=== PATIENT | female | born 1990 | race African-American/Black ===

== ENCOUNTER 2024-06-24 23:03 | Inpatient (IN) | payer MEDICAID ==
[~2024-06-24] VITALS: Ht 157.5 cm; Wt 42.1 kg
[2024-06-24 23:43] LABS: Basophils # (auto) 0 10 ^3/uL (0-0.2); Hemoglobin 10.3 g/dL (12.2-16.2); Lymphocytes # (auto) 1.1 10 ^3/uL (0.4-5.4); Monocytes # (auto) 0.4 10 ^3/uL (0-1.3); Neutrophils # (auto) 2.1 10 ^3/uL (1.6-8.6); White Blood Cell 3.8 10^3/uL (4.4-10.8)
[2024-06-24 23:45] LABS: Eosinophils # (auto) 0.2 10 ^3/uL (0-0.8); Eosinophils % (auto) 4.4 % (0.0-7.0); Hematocrit 31.1 % (36.0-46.0); Lymphocytes % (auto) 28.8 % (10.0-50.0); Mean Corpuscular Hemoglobin 24.9 pg (28.0-32.0); Mean Corpuscular Hgb Conc. 33.2 g/dL (32.0-36.0); Mean Corpuscular Volume 74.9 fL (80.0-100.0); Monocytes % (auto) 9.4 % (0.0-12.0); Neutrophils % (auto) 56.4 % (37.0-80.0); Nucleated Red Blood Cells % 0.2 %; Platelet Count (auto) 343 10^3/uL (140-450); Red Blood Cells 4.15 10^6/uL (4.0-5.20); Red Cell Distribution Width 15.6 % (11.8-14.3)
[2024-06-24 23:59] LABS: Base Excess 0.8 mmol/L (-2.0-3.0)
[2024-06-25] VITALS (9 sets, daily range): BP systolic 128–152; BP diastolic 91–108; PULSE 82–92; RESP 15–17; TEMP 97.6–98.8; O2SAT 97–100
[2024-06-25 00:01] LABS: Albumin 3.6 g/dL (3.2-4.8); Alkaline Phosphatase 133 U/L (46-116); Anion Gap 4 (5-15); Aspartate Aminotransferase < 8 U/L (13-40); BUN/Creatinine Ratio 4.8 (10.0-20.0); Blood Urea Nitrogen 6 mg/dL (9-23); Carbon Dioxide 29 mmol/L (20-30); Chloride 89 mmol/L (98-107); Potassium 3.9 mmol/L (3.5-5.1); Sodium 122 mmol/L (136-145)
[2024-06-25 00:02] LABS: Bilirubin, Total 0.2 mg/dL (0.2-1.0); Total Protein 7.8 g/dL (5.7-8.2)
[2024-06-25 00:20] LABS: Alanine Aminotransferase 9 U/L (7-40)
[2024-06-25 00:21] LABS: Glucose 724 mg/dL (74-106)
[2024-06-25] MEDS ORDERED: DEXTROSE (50%) 50ML SYRG IV PRN ×2 (00:30→10:15)
[2024-06-25] MEDS: INSULIN LANTUS (GLARGINE) 1 /0.01ml (100units/ml) SC ONE (03:00)
[2024-06-25] MEDS: ACCU-CHEK COMFORT CURVE STRIP VI SCH ×2 (03:00→11:33)
[2024-06-25] MEDS: SODIUM CHLORIDE 0.9% 1,000 ML IV ONE ×2 (03:00→03:15)
[2024-06-25] MEDS: INSULIN DRIP 100 UNIT/100ML 100 ML IV SCH (03:03)
[2024-06-25 08:01] LABS: Chloride 102 mmol/L (98-107); Potassium 3.5 mmol/L (3.5-5.1); Sodium 136 mmol/L (136-145)
[2024-06-25 08:02] LABS: Anion Gap 4 (5-15); Calcium 9.2 mg/dL (8.7-10.4); Carbon Dioxide 30 mmol/L (20-30)
[2024-06-25 08:07] LABS: Blood Urea Nitrogen 8 mg/dL (9-23); Glucose 85 mg/dL (74-106)
[2024-06-25] MEDS ORDERED: ONDANSETRON HCL 4 MG/2 ML VIAL IV PRN (10:15)
[2024-06-25] MEDS: SODIUM CHLORIDE 0.9% 1,000 ML IV SCH (10:15)
[2024-06-25] MEDS: InsuLIN REG 1unit/0.01ml Soln (100units/ml) SC SCH (11:40)
[2024-06-25] MEDS ORDERED: ACET250T20 PO (12:42)
[2024-06-25] MEDS ORDERED: ACET-1881 PO (12:45)
[2024-06-25] MEDS ORDERED: INSLISPI SC (12:45)
[2024-06-25] MEDS ORDERED: INSLANTI SC (12:45)
[2024-06-25 16:53] LABS: Urine Bacteria FEW /hpf (None Seen); Urine Blood 1+ /uL (Negative); Urine Clarity Clear (Clear); Urine Color Colorless (Yellow); Urine Protein, UAD 2+ (Negative); Urine Specific Gravity 1.006 (1.001-1.035); Urine Urobilinogen Normal (Negative); Urine WBC 50 /hpf (0 - 5)
[2024-06-25] MEDS ORDERED: DOCUSATE SOD 100 MG CAP PO PRN (21:15)
[2024-06-26] VITALS (7 sets, daily range): BP systolic 102–164; BP diastolic 67–105; PULSE 89–97; RESP 16–18; TEMP 97.6–98.7; O2SAT 98–100
[2024-06-26 06:42] LABS: Basophils # (auto) 0 10 ^3/uL (0-0.2); Hematocrit 28.6 % (36.0-46.0)
[2024-06-26 06:45] LABS: Basophils % (auto) 0.6 % (0.0-2.0); Eosinophils # (auto) 0.2 10 ^3/uL (0-0.8); Eosinophils % (auto) 4.4 % (0.0-7.0); Hemoglobin 9.7 g/dL (12.2-16.2); Lymphocytes # (auto) 1.6 10 ^3/uL (0.4-5.4); Lymphocytes % (auto) 30.6 % (10.0-50.0); Mean Corpuscular Hemoglobin 24.9 pg (28.0-32.0); Mean Corpuscular Hgb Conc. 33.9 g/dL (32.0-36.0); Mean Corpuscular Volume 73.5 fL (80.0-100.0); Monocytes # (auto) 0.4 10 ^3/uL (0-1.3); Monocytes % (auto) 8.3 % (0.0-12.0); Neutrophils # (auto) 2.9 10 ^3/uL (1.6-8.6); Neutrophils % (auto) 56.1 % (37.0-80.0); Nucleated Red Blood Cells % 0.1 %; Platelet Count (auto) 378 10^3/uL (140-450); White Blood Cell 5.2 10^3/uL (4.4-10.8)
[2024-06-26 07:11] LABS: Alkaline Phosphatase 107 U/L (46-116); Anion Gap 8 (5-15); BUN/Creatinine Ratio 10.3 (10.0-20.0); Blood Urea Nitrogen 8 mg/dL (9-23); Calcium 8.8 mg/dL (8.7-10.4); Carbon Dioxide 21 mmol/L (20-30); Chloride 106 mmol/L (98-107); Glucose 237 mg/dL (74-106); Potassium 3.9 mmol/L (3.5-5.1); Sodium 135 mmol/L (136-145)
[2024-06-26 07:12] LABS: Albumin 3.3 g/dL (3.2-4.8); Aspartate Aminotransferase 10 U/L (13-40); Bilirubin, Total 0.2 mg/dL (0.2-1.0); Total Protein 7.1 g/dL (5.7-8.2)
[2024-06-26 07:21] LABS: Alanine Aminotransferase < 9 U/L (7-40)
[2024-06-26] MEDS ORDERED: ACETAMINOPHEN 325 MG TAB PO PRN (11:30)
[2024-06-26] MEDS ORDERED: INSLANTI SC (11:43)
[2024-06-26] MEDS ORDERED: BLOOMIS91 XX (11:43)
[2024-06-26] MEDS: LISINOPRIL 5 MG TAB PO ONE (13:56)
[2024-06-26] MEDS: INSULIN LANTUS (GLARGINE) 1 /0.01ml (100units/ml) SC SCH ×2 (21:27→22:00)
[2024-06-27 00:46] VITALS: BP 132/82; PULSE 95; RESP 18; TEMP 98.1; O2SAT 98
[2024-06-27] MEDS: cefTRIAXone 1GM/50ML D5W 50 ML IV ONE (01:47)
[2024-06-27 05:00] VITALS: BP 118/66; PULSE 83; RESP 18; TEMP 98.2; O2SAT 99
[2024-06-27 08:00] VITALS: PULSE 78; RESP 16; O2SAT 99
[2024-06-27 08:35] LABS: Chloride 103 mmol/L (98-107); Potassium 3.6 mmol/L (3.5-5.1); Sodium 134 mmol/L (136-145)
[2024-06-27 08:36] LABS: Anion Gap 5 (5-15); Calcium 8.7 mg/dL (8.7-10.4); Carbon Dioxide 26 mmol/L (20-30)
[2024-06-27 08:41] LABS: BUN/Creatinine Ratio 17.3 (10.0-20.0); Blood Urea Nitrogen 13 mg/dL (9-23); Glucose 303 mg/dL (74-106)
[2024-06-27 09:00] VITALS: BP 110/71; PULSE 74; RESP 16; TEMP 97.5; O2SAT 95
[2024-06-27] MEDS: cefTRIAXone 1GM/50ML D5W 50 ML IV SCH (11:19)
[2024-06-27] MEDS: LISINOPRIL 5 MG TAB PO SCH (11:20)
[2024-06-27] MEDS ORDERED: INSLISPI SC (11:36)
[2024-06-27] MEDS ORDERED: CEPH500C PO (11:37)
[2024-06-27 13:00] VITALS: BP 135/57; PULSE 93; RESP 16; TEMP 98.1; O2SAT 96
[2024-06-27 16:00] VITALS: BP 110/71; TEMP 36.7
== END 2024-06-27 17:00 | disposition home or self-care (01) | DRG 351 ==
LOC: ER 23:03 → OVERFLOW 06-25 10:08 → CENTRAL 06-25 11:59
PROVIDERS: ADMIT Registered Nurse; ATTEND Internal Medicine Geriatric Medicine
DX: S29.011A Strain of muscle and tendon of front wall of thorax, initial encounter (principal); N17.0 Acute kidney failure with tubular necrosis; E10.65 Type 1 diabetes mellitus with hyperglycemia; N39.0 Urinary tract infection, site not specified; X58.XXXA Exposure to other specified factors, initial encounter; Z79.4 Long term (current) use of insulin; Z91.199 Patient's noncompliance with other medical treatment and regimen due to unspecified reason; Y93.89 Activity, other specified; Y92.89 Other specified places as the place of occurrence of the external cause; Y99.8 Other external cause status
CPT/HCPCS: 36415; 36600; 71045; 80048; 80053; 81001; 81025; 82010; 82805; 82962; 83036; 85025; 96360; 96361; 96372; 99291; G0378; J1815

== ENCOUNTER 2024-10-25 19:09 | Inpatient (IN) | payer MEDICAID, OTHER ==
[~2024-10-25] VITALS: Ht 157.5 cm; Wt 40.5 kg
[~2024-10-25 19:09] MED LIST: ACET-1881 PO; BLOOMIS91 XX; CEPH500C PO; INSLANTI SC; INSLISPI SC
--- NOTE | 2024-10-25 20:33 | ED.PDOC ---
GI ASSESSMENT HPI Comments HPI: Poor Historian. 34-year-old female presents to emergency department for evaluation of constipation and states having no bowel movements since August of last year. Patient denies any associated nausea or vomiting or fever. Denies any use of drugs. Past Medcial History: Diabetes Past Surgical History: , right breast I and D of an abscess REVIEW OF SYSTEMS: CONSTITUTIONAL: Denies acute: fever, diaphoresis, chills, generalized weakness. HEAD: Denies acute: headache, photophobia Eyes: Denies acute: Double vision, vision loss, eye pain, eye discharge. EARS: Denies acute: tinnitus, hearing loss, ear discharge, ear pain, THROAT: Denies acute: sore throat, swelling, difficulty swallowing , pain with swallowing, change in voice. NECK: Denies acute: neck pain, neck swelling, stiff neck. HEART: Denies acute : chest pain, palpitations, LUNGS: Denies acute: SOB, wheezing, cough, hemoptysis ABDOMEN: Denies acute: Nausea, Vomiting, diarrhea, melena , hematemesis, hematochezia SKIN: Denies acute: rash, redness, lesions, itchiness. EXTREMITIES: Denies acute: calf pain, numbness, tingling, weakness, denies pain in extremity. Denies acute: Low back pain. Neuro: Denies acute: focal neurological deficit, motor or sensory focal neurological deficit, tremors, seizure like activity, confusion, dizziness, change in mental status, loss of bowel or bladder function, cauda equina like symptoms. : Denies acute: dysuria, hematuria, flank pain, increase in urinary frequency. PSYCH: Denies acute: hallucination, suicidal ideation, homicidal ideation. FEMALE: Denies acute: abnormal vaginal bleeding, foul odor, unusual discharge. PHYSICAL EXAM: General: no acute distress, awake and alert. Head: normocephalic, atraumatic. Neck: supple, trachea is midline, no swelling. Throat: Normal phonation. Eyes:, no erythema, no purulent discharge, no proptosis, no icterus. Heart: regular rate, regular rhythm, no significant murmur appreciated. Lungs: no apparent respiratory distress, Able to speak in full sentences. No wheezing, no rhonchi, no crackles. No stridors Clear to auscultation bilaterally. Abdomen: non tender to palpation, non distended, soft, no guarding, no rebound, + bowel sounds. Neuro: Awake, Alert, oriented to name, self, situation, follows commands GCS=15. Speech is normal. Skin: no petechia, no purpura, no cyanosis, non-pale, not jaundice. Lower extremities: --no - Pitting edema no deformity, no focal swelling, no calf TTP. Makes eye contact. moves all four extremities. Face: no apparent facial droop. Ambulating in the ED independently. Chief Complaint: Constipation Time Seen by MD: 19:53 Reviewed Notes: Nurses Notes, Allergies Allergies: Coded Allergies: [place] Flavor (Verified Allergy, Severe, 06/25/24) itching in the tongue with fresh mangoes per patient Home Meds Active Scripts Cephalexin Monohydrate (Cephalexin) 500 Mg Cap, 1 CAP PO TID, #15 CAP Prov:ROSETTA BROWN MD 06/27/24 Insulin Lispro (Human) (Humalog) 100 Unit/Ml Inj, 7 UNIT SC TIDWM, #1000 UNITS Prov:ROSETTA BROWN MD 06/27/24 Insulin Glargine (Lantus) 100 Unit/Ml Inj, 15 UNIT SC DAILY, #1000 INJ Prov:ROSETTA BROWN MD 06/26/24 Blood Glucose Monitoring Suppl (Freestyle Lite Blood Gluc) 1 Mis Mis, MIS XX, #1 Prov:ROSETTA BROWN MD 06/26/24 Reported Medications Acetaminophen (Acetaminophen) 325 Mg Tab, 500 MG PO DAILY PRN for PAIN SCALE 1 THRU 6 for 30 Days, MG 0 Refills 06/25/24 Insulin Lispro (Human) (Humalog) 100 Unit/Ml Inj, 4 UNIT SC AC, INJ 06/25/24 Insulin Glargine (Lantus) 100 Unit/Ml Inj, 18 UNIT SC HS, INJ 06/25/24 Information Source: Patient Mode of Arrival: Ambulatory Past Medical History PAST MEDICAL HISTORY: DM Surgical History: Denies all surgeries 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 Was a procedure done?: No X-Ray, Labs, Meds, VS Vital Signs Date Time Temp Pulse Resp B/P (MAP) Pulse Ox O2 Delivery O2 Flow Rate FiO2 10/25/24 19:47 97.7 103 18 102/69 (80) 99 Lab Test 10/25/24 20:20 10/25/24 19:54 Range/Units White Blood Count 7.5 4.4-10.8 10^3/uL Red Blood Count 4.28 4.0-5.20 10^6/uL Hemoglobin 10.3 L 12.2-16.2 g/dL Hematocrit 31.3 L 36.0-46.0 % Mean Corpuscular Volume 73.3 L 80.0-100.0 fL Mean Corpuscular Hemoglobin 24.0 L 28.0-32.0 pg Mean Corpuscular Hemoglobin Concent 32.8 32.0-36.0 g/dL Red Cell Distribution Width 16.1 H 11.8-14.3 % Platelet Count 248 140-450 10^3/uL Mean Platelet Volume 9.0 6.9-10.8 fL Neutrophils (%) (Auto) 69.8 37.0-80.0 % Lymphocytes (%) (Auto) 21.6 10.0-50.0 % Monocytes (%) (Auto) 6.6 0.0-12.0 % Eosinophils (%) (Auto) 1.6 0.0-7.0 % Basophils (%) (Auto) 0.4 0.0-2.0 % Neutrophils # (Auto) 5.2 1.6-8.6 10 ^3/uL Lymphocytes # (Auto) 1.6 0.4-5.4 10 ^3/uL Monocytes # (Auto) 0.5 0-1.3 10 ^3/uL Eosinophils # (Auto) 0.1 0-0.8 10 ^3/uL Basophils # (Auto) 0 0-0.2 10 ^3/uL Nucleated Red Blood Cells 0.0 % Sodium Level 130 L 136-145 mmol/L Potassium Level 3.3 L 3.5-5.1 mmol/L Chloride Level 98 98-107 mmol/L Carbon Dioxide Level 26 20-31 mmol/L Anion Gap 6 5-15 Blood Urea Nitrogen 13 9-23 mg/dL Creatinine 1.09 H 0.550-1.02 mg/dL Glomerular Filtration Rate Calc 69 >90 mL/min BUN/Creatinine Ratio 11.9 10.0-20.0 Serum Glucose 256 H 74-106 mg/dL Lactic Acid Level 1.3 0.4-2.0 mmol/L Calcium Level 9.8 8.7-10.4 mg/dL Total Bilirubin 0.3 0.2-1.0 mg/dL Aspartate Amino Transferase (AST) 9 L 13-40 U/L Alanine Aminotransferase (ALT) < 9 7-40 U/L Alkaline Phosphatase 122 H 46-116 U/L Troponin I High Sensitivity < 3 L </=34 ng/L Total Protein 8.2 5.7-8.2 g/dL Albumin 3.8 3.2-4.8 g/dL Lipase 44 12-53 U/L Urine Color Colorless Yellow Urine Clarity Turbid H Clear Urine pH 6.0 5.0-9.0 Urine Specific [place] 1.003 1.001-1.035 Urine Protein 1+ H Negative Urine Ketones Negative Negative Urine Blood 1+ H Negative /uL Urine Nitrite Negative Negative Urine Bilirubin Negative Negative Urine Urobilinogen Normal Negative mg/dL Urine Leukocyte Esterase 3+ Negative /uL Urine RBC 23 0 - 4 /hpf Urine WBC 216 0 - 5 /hpf Urine Squamous Epithelial Cells Few <5 /hpf Urine Amorphous Crystals Few None Seen /hpf Urine Bacteria Many H None Seen /hpf Urine Glucose 4+ H Normal mg/dL Urine Test Negative Negative Urine Opiates Screen Neg NEGATIVE Urine Fentanyl Screen Neg NEGATIVE Urine Barbiturates Screen Neg NEGATIVE Urine Phencyclidine Screen Neg NEGATIVE Urine Amphetamines Screen Neg NEGATIVE Urine Benzodiazepines Screen Neg NEGATIVE Urine Cocaine Screen Neg NEGATIVE Urine Cannabinoids Screen Neg NEGATIVE [place] [id number] Ph: [phone] DIAGNOSTIC IMAGING Diagnostic Imaging Report : [id number] Signed PATIENT: MADDY CORNEJOT: [id number] UNIT: [id number] : 1990 LOC: ER ROOM / BED: / AGE / SEX: 34 / F ADM STATUS: REG ER SERVICE 99 ORDERING PHYSICIAN: ROSA SALDIVAR DO PROCEDURE(s): ABPL - CT AB PEL WO CON-NO ORAL OR IV REASON: constipation ORDER NUMBER(s): [id number], ACCESSION NUMBER(s): [id number] Exam: CT CT AB PEL WO CON-NO ORAL OR IV History: constipation Comparison Study: None available at time of dictation. TECHNIQUE: Multidetector CT of the abdomen was performed from lung bases to pubic symphysis. Imaging was performed without IV contrast. Axial, coronal and sagittal multiplanar reformats were obtained from the axial data set by the technologist. Radiation Dose Information: CT Dose: CTDI volume is 5.07 mGy. Dose-length product is 249.58 mGy*cm FINDINGS: Evaluation of solid organs is limited due to lack of intravenous contrast use. Findings: Lung Bases: No acute or significant lung base finding. Normal heart size. No pleural or pericardial effusion. Liver: The liver is normal in size. No focal lesions. Gallbladder and Biliary Tree: Unremarkable Spleen: Unremarkable Pancreas: The pancreas is grossly normal in appearance. Adrenal Glands: Unremarkable Kidneys: Bilateral grade 2-3 hydronephrosis with hydroureter to the bladder. Bladder: Markedly distended bladder with urine and gas and thickened wall which is irregular in worrisome for neoplasm. Possibility of infection is raised. Is measured 16 cm long 10 cm in anterior to posterior dimension and 12-13 cm in transverse dimension. Bowel: The stomach is grossly normal in appearance. Small bowel and colon are normal in caliber and distribution. The appendix is not visualized; however, no secondary findings of acute appendicitis identified. Ascites: Absent Lymphadenopathy: No mesenteric, retroperitoneal or periportal lymphadenopathy. Abdominal Wall and Mesentery: Unremarkable. Vasculature: The visualized abdominal aorta is normal in size and caliber. Evaluation of abdominal and pelvic vessels is limited due to lack of intravenous contrast. Pelvic Organs: Uterus appears to be displaced by this fluid containing mass which is assumed to be the bladder Musculoskeletal: No aggressive focal bony lesions, acute fractures or dislocation. Soft tissues: Unremarkable IMPRESSION: 1. Grade 2 hydronephrosis bilaterally with hydroureter to the bladder. The bladder measures 16 x 10 x 13 cm. There is both fluid and gas in the bladder suggesting infection. Another explanation would be that there has been attempted catheterization. The wall of the bladder is irregularly thickened suggesting neoplasm. 2. There is no free air or free fluid. Radiation optimization: All CT scans at this facility use at least one of these dose optimization techniques: automated exposure control mA and/or kV adjustment per patient size (includes targeted exams where dose is matched to clinical indication) or iterative reconstruction. ATED BY: TRANG EWING Jr., DO DICTATED DATE/TIME: 10/25/242110 SIGNED BY: TRANG EWING Jr., SIGNED DATE/TIME: 10/25/242110 CC: Patient Education/Counseling: Diagnosis, Treatment Family Education/Counseling: No Family Present Departure 1 Departure Time of Disposition: 21:52 Impression: Primary Impression: Constipation Additional Impressions: UTI (urinary tract infection) Hydronephrosis Abnormal finding on CT scan Disposition: ADMITTED INPATIENT Admit to: Tele Condition: Guarded Discharged With: Self I personally scribed for ROSA SALDIVAR DO ([email or web address]) on 10/25/24 at 20:33. Electronically submitted by Rene Caldwell ([email or web address]). I personally scribed for ROSA SALDIVAR DO ([email or web address]) on 10/25/24 at 22:26. Electronically submitted by Rene Caldwell ([email or web address]). ROSA SALDIVAR DO Oct 25, 2024 20:33
[2024-10-25 20:41] LABS: Basophils # (auto) 0 10 ^3/uL (0-0.2); Eosinophils # (auto) 0.1 10 ^3/uL (0-0.8); Hematocrit 31.3 % (36.0-46.0); Monocytes # (auto) 0.5 10 ^3/uL (0-1.3); Red Blood Cells 4.28 10^6/uL (4.0-5.20); White Blood Cell 7.5 10^3/uL (4.4-10.8)
[2024-10-25 20:42] LABS: Basophils % (auto) 0.4 % (0.0-2.0); Eosinophils % (auto) 1.6 % (0.0-7.0); Hemoglobin 10.3 g/dL (12.2-16.2); Lymphocytes # (auto) 1.6 10 ^3/uL (0.4-5.4); Lymphocytes % (auto) 21.6 % (10.0-50.0); Mean Corpuscular Hgb Conc. 32.8 g/dL (32.0-36.0); Mean Corpuscular Volume 73.3 fL (80.0-100.0); Monocytes % (auto) 6.6 % (0.0-12.0); Neutrophils # (auto) 5.2 10 ^3/uL (1.6-8.6); Neutrophils % (auto) 69.8 % (37.0-80.0); Platelet Count (auto) 248 10^3/uL (140-450); Red Cell Distribution Width 16.1 % (11.8-14.3)
[2024-10-25 20:57] LABS: Amphetamine Screen, Urine Neg (NEGATIVE); Barbiturate Scree,Urine Neg (NEGATIVE); Benzodiazephine Screen, Urine Neg (NEGATIVE); Cannabinoid Screen, Urine Neg (NEGATIVE); Cocaine Screen, Urine Neg (NEGATIVE); Opiate Scree,Urine Neg (NEGATIVE); Phencyclidine Screen, Urine Neg (NEGATIVE)
[2024-10-25 20:58] LABS: Albumin 3.8 g/dL (3.2-4.8); Anion Gap 6 (5-15); BUN/Creatinine Ratio 11.9 (10.0-20.0); Bilirubin, Total 0.3 mg/dL (0.2-1.0); Blood Urea Nitrogen 13 mg/dL (9-23); Calcium 9.8 mg/dL (8.7-10.4); Carbon Dioxide 26 mmol/L (20-31)
[2024-10-25 21:00] LABS: Alanine Aminotransferase < 9 U/L (7-40); Alkaline Phosphatase 122 U/L (46-116); Aspartate Aminotransferase 9 U/L (13-40); Chloride 98 mmol/L (98-107); Glucose 256 mg/dL (74-106); Potassium 3.3 mmol/L (3.5-5.1); Sodium 130 mmol/L (136-145); Total Protein 8.2 g/dL (5.7-8.2)
--- NOTE | 2024-10-25 21:14 | DVH ---
Exam: CT CT AB PEL WO CON-NO ORAL OR IV History: constipation Comparison Study: None available at time of dictation. TECHNIQUE: Multidetector CT of the abdomen was performed from lung bases to pubic symphysis. Imaging was performed without IV contrast. Axial, coronal and sagittal multiplanar reformats were obtained fr om the axial data set by the technologist. Radiation Dose Information: CT Dose: CTDI volume is 5.07 mGy. Dose-length product is 249.58 mGy*cm FINDINGS: Evaluation of solid organs is limited due to lack of intravenous contrast use. Findings: Lung Bases: No acute or significant lung base finding. Normal heart size. No pleural or pericardial effusion. Liver: The liver is normal in size. No focal lesions. Gallbladder and Biliary Tree: Unremarkable Spleen: Unremarkable Pancreas: The pancreas is grossly normal in appearance. Adrenal Glands: Unremarkable Kidneys: Bilateral grade 2-3 hydronephrosis with hydroureter to the bladder. Bladder: Markedly distended bladder with urine and gas and thickened wall which is irregular in worri some for neoplasm. Possibility of infection is raised. Is measured 16 cm long 10 cm in anterior to po sterior dimension and 12-13 cm in transverse dimension. Bowel: The stomach is grossly normal in appearance. Small bowel and colon are normal in caliber and d istribution. The appendix is not visualized; however, no secondary findings of acute appendicitis id entified. Ascites: Absent Lymphadenopathy: No mesenteric, retroperitoneal or periportal lymphadenopathy. Abdominal Wall and Mesentery: Unremarkable. Vasculature: The visualized abdominal aorta is normal in size and caliber. Evaluation of abdominal a nd pelvic vessels is limited due to lack of intravenous contrast. Pelvic Organs: Uterus appears to be displaced by this fluid containing mass which is assumed to be th e bladder Musculoskeletal: No aggressive focal bony lesions, acute fractures or dislocation. Soft tissues: Unremarkable IMPRESSION: 1. Grade 2 hydronephrosis bilaterally with hydroureter to the bladder. The bladder measures 16 x 10 x 13 cm. There is both fluid and gas in the bladder suggesting infection. Another explanation would be that there has been attempted catheterization. The wall of the bladder is irregularly thickened sugg esting neoplasm. 2. There is no free air or free fluid. Radiation optimization: All CT scans at this facility use at least one of these dose optimization te chniques: automated exposure control mA and/or kV adjustment per patient size (includes targeted exa ms where dose is matched to clinical indication) or iterative reconstruction.
[2024-10-25 21:18] LABS: Urine Amorphous Crystal FEW /hpf (None Seen); Urine Bacteria MANY /hpf (None Seen); Urine Blood 1+ /uL (Negative); Urine Clarity Turbid (Clear); Urine Color Colorless (Yellow); Urine Protein, UAD 1+ (Negative); Urine Specific Gravity 1.003 (1.001-1.035); Urine Squamous Epithelial Cell FEW /hpf (<5); Urine Urobilinogen Normal (Negative); Urine WBC 216 /hpf (0 - 5)
[2024-10-25 21:45] LABS: Lipase 44 U/L (12-53)
[2024-10-25] MEDS ORDERED: cefTRIAXone 1GM/50ML D5W 50 ML IV ONE (22:00)
--- NOTE | 2024-10-25 23:25 | DVHHPRES ---
History of Present Illness Resident Creating Document: SINAN DELCID RESIDENT History of Present Illness This is a 34 years old female with past medical history of type 1 diabetes mellitus, sickle cell trait presented to the ED with a chief complaint of not having any bowel movement since August 2024. The patient states that she did not have any bowel movement since August and also complains of right- sided abdominal pain including right subcostal, hypochondriac and right lumbar region but did mention passing of flatus. She normally has a bowel movement every other week since childhood. She also mentioned low-grade fever, night sweats, loss of 10 lb in 4 month and night time incontinence need to use diaper for last 1 month. The patient also complained of amenorrhea since May 2024 and not using any control and her last child was born on 2018 and she had 3 section. The patient denies nausea, vomiting, hemoptysis, hematemesis, chest pain, shortness of breath, dizziness. Past Medical History Type 1 DM and sickle cell traits Past Surgical History 3 Family History Type 1 Diabetes mellitus, lupus and CHF runs in the family Past Social History Lives with family Nonsmoker, nonalcoholic and never tried any drugs. Review of Systems Constitutional: Yes: Sweats, Weakness; No: Fever, Chills, Malaise, Other Eyes: No: Pain, Vision change, Conjunctivae inflammation, Eyelid inflammation, Other, Redness ENT: No: Ear pain, Ear discharge, Nose pain, Nose discharge, Nose congestion, Mouth pain, Mouth swelling, Throat pain, Throat swelling, Other Respiratory: No: Cough, Dry, Shortness of breath, SOB with excertion, Wheezing, Hemoptysis, Pleuritic Pain, Sputum, Wheezing, Other Cardiovascular: No: Chest Pain, Palpitations, Orthopnea, Paroxysmal Noc. Dyspnea, Edema, Lt Headedness, Other Gastrointestinal: Abdominal Pain, Constipation, Hematochezia; No: Nausea, Vomiting, Diarrhea, Melena, Other Genitourinary: Dysuria, Frequency, Incontinence; No Hematuria, No Retention, No Other Musculoskeletal: No: other, neck pain, shoulder pain, arm pain, back pain, hand pain, leg pain, foot pain Skin: No: Rash, Lesions, Jaundice, Bruising, Other Neurological: No: Weakness, Numbness, Incoordination, Change in speech, Confusion, Seizures, Other Allergies: Coded Allergies: [place] Flavor (Verified Allergy, Severe, 06/25/24) itching in the tongue with fresh mangoes per patient Exam Vital Signs Vital Signs Date Time Temp Pulse Resp B/P (MAP) Pulse Ox O2 Delivery O2 Flow Rate FiO2 10/25/24 19:47 97.7 103 18 102/69 (80) 99 Exam Physical examination: General Appearance: Alert, Oriented X3, Cooperative, No acute distress HEENT: Atraumatic, PERRLA, EOMI, Mucous membrane moist/pink Respiratory: Clear to auscultation, Normal air movement Cardiovascular: Regular rate, Normal S1, Normal S2, No murmurs, no chest wall tenderness Abdominal: Abdomen is mildly distended, soft, sluggish bowel sounds, mild tenderness in the rt hypochondria region, No hepatospenomegaly, No masses Extremities: No clubbing, No cyanosis, No edema, Normal pulses, No tenderness/swelling Skin: No rashes, No breakdown, No significant lesion Neuro: Normal gait, Normal speech, Strength at 5/5 X4 ext, Normal tone, Sensation intact, grossly intact cranial nerves Psych/Mental Status: Mental status NL, Mood NL Labs/Xrays Labs Test 10/25/24 20:20 10/25/24 19:54 Range/Units White Blood Count 7.5 4.4-10.8 10^3/uL Red Blood Count 4.28 4.0-5.20 10^6/uL Hemoglobin 10.3 L 12.2-16.2 g/dL Hematocrit 31.3 L 36.0-46.0 % Mean Corpuscular Volume 73.3 L 80.0-100.0 fL Mean Corpuscular Hemoglobin 24.0 L 28.0-32.0 pg Mean Corpuscular Hemoglobin Concent 32.8 32.0-36.0 g/dL Red Cell Distribution Width 16.1 H 11.8-14.3 % Platelet Count 248 140-450 10^3/uL Mean Platelet Volume 9.0 6.9-10.8 fL Neutrophils (%) (Auto) 69.8 37.0-80.0 % Lymphocytes (%) (Auto) 21.6 10.0-50.0 % Monocytes (%) (Auto) 6.6 0.0-12.0 % Eosinophils (%) (Auto) 1.6 0.0-7.0 % Basophils (%) (Auto) 0.4 0.0-2.0 % Neutrophils # (Auto) 5.2 1.6-8.6 10 ^3/uL Lymphocytes # (Auto) 1.6 0.4-5.4 10 ^3/uL Monocytes # (Auto) 0.5 0-1.3 10 ^3/uL Eosinophils # (Auto) 0.1 0-0.8 10 ^3/uL Basophils # (Auto) 0 0-0.2 10 ^3/uL Nucleated Red Blood Cells 0.0 % Sodium Level 130 L 136-145 mmol/L Potassium Level 3.3 L 3.5-5.1 mmol/L Chloride Level 98 98-107 mmol/L Carbon Dioxide Level 26 20-31 mmol/L Anion Gap 6 5-15 Blood Urea Nitrogen 13 9-23 mg/dL Creatinine 1.09 H 0.550-1.02 mg/dL Glomerular Filtration Rate Calc 69 >90 mL/min BUN/Creatinine Ratio 11.9 10.0-20.0 Serum Glucose 256 H 74-106 mg/dL Lactic Acid Level 1.3 0.4-2.0 mmol/L Calcium Level 9.8 8.7-10.4 mg/dL Total Bilirubin 0.3 0.2-1.0 mg/dL Aspartate Amino Transferase (AST) 9 L 13-40 U/L Alanine Aminotransferase (ALT) < 9 7-40 U/L Alkaline Phosphatase 122 H 46-116 U/L Troponin I High Sensitivity < 3 L </=34 ng/L Total Protein 8.2 5.7-8.2 g/dL Albumin 3.8 3.2-4.8 g/dL Lipase 44 12-53 U/L Urine Color Colorless Yellow Urine Clarity Turbid H Clear Urine pH 6.0 5.0-9.0 Urine Specific [place] 1.003 1.001-1.035 Urine Protein 1+ H Negative Urine Ketones Negative Negative Urine Blood 1+ H Negative /uL Urine Nitrite Negative Negative Urine Bilirubin Negative Negative Urine Urobilinogen Normal Negative mg/dL Urine Leukocyte Esterase 3+ Negative /uL Urine RBC 23 0 - 4 /hpf Urine WBC 216 0 - 5 /hpf Urine Squamous Epithelial Cells Few <5 /hpf Urine Amorphous Crystals Few None Seen /hpf Urine Bacteria Many H None Seen /hpf Urine Glucose 4+ H Normal mg/dL Urine Test Negative Negative Urine Opiates Screen Neg NEGATIVE Urine Fentanyl Screen Neg NEGATIVE Urine Barbiturates Screen Neg NEGATIVE Urine Phencyclidine Screen Neg NEGATIVE Urine Amphetamines Screen Neg NEGATIVE Urine Benzodiazepines Screen Neg NEGATIVE Urine Cocaine Screen Neg NEGATIVE Urine Cannabinoids Screen Neg NEGATIVE Assessment/Plan Assessment/Plan Assessment and plan: # Acute complicated cystitis - U/A is consistent with UTI - Ordered urine bacterial culture - IV ceftriaxone 1 gm daily. # Grade 2 bilateral hydronephrosis and hydroureter likely secondary to possible bladder neoplasm # Constipation likely due to pressure effect of bladder on the rectum - CT abdomen pelvis revealed grade 2 hydronephrosis bilaterally with hydroureter to the bladder and the bladder measures 16 x 10 x 13 cm irregularly thickened suggesting neoplasm. There is both fluid and gas in the bladder suggesting infection. - Consulted Urology - Lactulose 15 mL p.o. once and Colace 100 mg p.o. b.i.d. 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 # Type 1 diabetes mellitus, HbA1C 13.4% - Lantus 15 units at q.a.m. and mild sliding scale of insulin # Chronic microcytic anaemia - Ordered iron panel, ferritin and stool occult blood. # GERD - Protonix 40 mg po daily. Goal of care discussed with the patient for more than 17 minutes full code Plan discussed with Dr. Syed Plan discussed with: Patient, Other My Orders Orders - SINAN DELCID RESIDENT Procedure Category Date Status Time Admit ADMIT 10/25/24 Transmitted 23:20 Chest Xray 1 View XY 10/25/24 Verified 23:21 Urine Bacterial MIGUEL 10/25/24 Verified Culture 23:21 NS PHA 10/25/24 Verified 23:30 Ceftriaxone Ivpb PHA 10/26/24 Verified Rocephin 10:00 Date of Service: Oct 25, 2024 Billing Provider: GALDINO SYED MD Common Visit Codes: [id number] INP/OBS CARE (HIGH) SINAN DELCID RESIDENT Oct 25, 2024 23:25 GALDINO SYED MD Oct 26, 2024 17:47
[2024-10-26] VITALS (7 sets, daily range): BP systolic 126–163; BP diastolic 83–108; PULSE 83–102; RESP 12–18; TEMP 97.4–98.7; O2SAT 96–100
[2024-10-26 00:10] LABS: Follicle Stimulating Hormone 3.6 IU/L (SEE BELOW); Prolactin 4.31 ng/mL (2.8-29.2)
--- NOTE | 2024-10-26 00:42 | DVH ---
CHEST RADIOGRAPH Indication: chest pain Technique: Single frontal view of the chest was obtained COMPARISON: XY CHEST PORTABLE on DOS: 06/25/24 FINDINGS: Lines and Tubes: None Lungs: Clear Pleura: No effusion. No pneumothorax. Cardiomediastinal contours: Unremarkable Bones: Unremarkable IMPRESSION: 1. No acute disease.
[2024-10-26] MEDS ORDERED: DEXTROSE (50%) 50ML SYRG IV PRN (01:45)
--- NOTE | 2024-10-26 03:11 | DVH ---
Examination: PELUS CLINICAL INDICATION: Secondary amenorrhoea COMPARISON: None. TECHNIQUE: Transabdominal ultrasound was performed. FINDINGS: The uterus is anteverted and measures 6.9 cm in length, 4.3 cm anteroposterior and 3 cm transverse di mensions. It shows homogenous echotexture. Uterus appears displaced by bladder. The endometrium is not visualized. Cervix is within normal limits. Both ovaries are not seen. There is no evidence of adnexal mass. No free fluid is seen. Bladder appears distended, 532 mL with debris. IMPRESSION: 1. No significant abnormality is noted in this study. 2. Uterus appears unremarkable. 3. No free fluid. Electronically Signed 10/26/2024 03:10 Ramesh Bustos
[2024-10-26 06:18] LABS: % Iron Saturation 6.9 % (15-50)
[2024-10-26] MEDS: SODIUM CHLORIDE 0.9% 1,000 ML IV ONE (06:25)
[2024-10-26] MEDS: LACTULOSE 20Gm/30ML SOLN PO ONE (06:33)
[2024-10-26] MEDS: POTASSIUM EFFERVESENT TAB 25 MEQ PO ONE (06:34)
[2024-10-26] MEDS: PANTOPRAZOLE 40 MG TAB PO SCH (06:35)
[2024-10-26] MEDS: ACCU-CHEK COMFORT CURVE STRIP VI SCH (06:45)
[2024-10-26] MEDS: InsuLIN REG 1unit/0.01ml Soln (100units/ml) SC SCH (06:50)
[2024-10-26] MEDS: INSULIN LANTUS (GLARGINE) 1 /0.01ml (100units/ml) SC SCH (07:02)
[2024-10-26 08:04] LABS: Basophils # (auto) 0 10 ^3/uL (0-0.2); Eosinophils # (auto) 0.2 10 ^3/uL (0-0.8); Monocytes # (auto) 0.4 10 ^3/uL (0-1.3); Neutrophils # (auto) 3.3 10 ^3/uL (1.6-8.6); Red Cell Distribution Width 16.5 % (11.8-14.3)
[2024-10-26 08:06] LABS: Anion Gap 8 (5-15); Basophils % (auto) 0.5 % (0.0-2.0); Carbon Dioxide 28 mmol/L (20-31); Hematocrit 30.1 % (36.0-46.0); Lymphocytes # (auto) 1.3 10 ^3/uL (0.4-5.4); Lymphocytes % (auto) 24.6 % (10.0-50.0); Mean Corpuscular Hgb Conc. 33.2 g/dL (32.0-36.0); Mean Corpuscular Volume 72.4 fL (80.0-100.0); Monocytes % (auto) 7.5 % (0.0-12.0); Neutrophils % (auto) 64.4 % (37.0-80.0); Platelet Count (auto) 209 10^3/uL (140-450); Red Blood Cells 4.15 10^6/uL (4.0-5.20); White Blood Cell 5.2 10^3/uL (4.4-10.8)
[2024-10-26 08:08] LABS: Calcium 9.7 mg/dL (8.7-10.4)
[2024-10-26 08:11] LABS: Chloride 98 mmol/L (98-107); Potassium 3.3 mmol/L (3.5-5.1); Sodium 134 mmol/L (136-145)
[2024-10-26 08:13] LABS: BUN/Creatinine Ratio 13.3 (10.0-20.0); Blood Urea Nitrogen 15 mg/dL (9-23)
[2024-10-26 08:24] LABS: Glucose 368 mg/dL (74-106)
--- NOTE | 2024-10-26 09:41 | DVHINCON2 ---
Date of service: Oct 26, 2024 Referring Physician Hospitalist Reason for Consultation Bilateral hydronephrosis and distended bladder History of Present Illness 34 years old female with past medical history of type 1 diabetes mellitus, sickle cell trait presented to the ED with a chief complaint of not having any bowel movement since August 2024. The patient states that she did not have any bowel movement since August and also complains of right-sided abdominal pain including right subcostal, hypochondriac and right lumbar region but did mention passing of flatus. She normally has a bowel movement every other week since childhood. She also mentioned low-grade fever, night sweats, loss of 10 lb in 4 month and night time incontinence need to use diaper for last 1 month. The patient also complained of amenorrhea since May 2024 and not using any control and her last child was born on 2018 and she had 3 sect ion. The patient denies nausea, vomiting, hemoptysis, hematemesis, chest pain, shortness of breath, dizziness. Past Medical History Type 1 DM and sickle cell traits Past Surgical History 3 Family History: FH: type 1 diabetes G8 MOTHER FHx: kidney disease G8 MOTHER Patient's mother is G8 MOTHER Allergies: Coded Allergies: [place] Flavor (Verified Allergy, Severe, 06/25/24) itching in the tongue with fresh mangoes per patient Home Meds Active Scripts Cephalexin Monohydrate (Cephalexin) 500 Mg Cap, 1 CAP PO TID, #15 CAP Prov:ROSETTA BROWN MD 06/27/24 Insulin Lispro (Human) (Humalog) 100 Unit/Ml Inj, 7 UNIT SC TIDWM, #1000 UNITS Prov:ROSETTA BROWN MD 06/27/24 Insulin Glargine (Lantus) 100 Unit/Ml Inj, 15 UNIT SC DAILY, #1000 INJ Prov:ROSETTA BROWN MD 06/26/24 Blood Glucose Monitoring Suppl (Freestyle Lite Blood Gluc) 1 Mis Mis, MIS XX, #1 Prov:ROSETTA BROWN MD 06/26/24 Reported Medications Acetaminophen (Acetaminophen) 325 Mg Tab, 500 MG PO DAILY PRN for PAIN SCALE 1 THRU 6 for 30 Days, MG 0 Refills 06/25/24 Insulin Lispro (Human) (Humalog) 100 Unit/Ml Inj, 4 UNIT SC AC, INJ 06/25/24 Insulin Glargine (Lantus) 100 Unit/Ml Inj, 18 UNIT SC HS, INJ 06/25/24 Current Medications Current Medications Medications (Trade) Dose Ordered Sig/Tiara Route PRN Reason Start Time Stop Time Status Last Admin Sodium Chloride 1,000 ml @ 75 mls/hr [id number] IV 10/25/24 23:30 Ceftriaxone Sodium 50 ml @ 100 mls/hr DAILY IV 10/26/24 10:00 Docusate Sodium (Colace Capsule) 100 mg BID PO 10/26/24 10:00 Insulin Glargine (Lantus) 15 units QAM SC 10/26/24 07:00 10/26/24 07:02 Diagnostic Test (Pha) (Accu-Chek Comfort Curve T) 1 strip ACHS 10/26/24 07:00 10/26/24 06:45 Insulin Human Regular (InsuLIN R) ACHS SC 10/26/24 07:00 10/26/24 06:50 Dextrose 50 ml UD PRN IV Blood Sugar LESS THAN 60 10/26/24 01:45 Pantoprazole Sodium (Protonix Tablet) 40 mg DAILY@0600 PO 10/26/24 06:00 10/26/24 06:35 Review of Systems Constitutional: Yes: Sweats, Weakness; No: Fever, Chills, Malaise, Other Eyes: No: Pain, Vision change, Conjunctivae inflammation, Eyelid inflammation, Other, Redness ENT: No: Ear pain, Ear discharge, Nose pain, Nose discharge, Nose congestion, Mouth pain, Mouth swelling, Throat pain, Throat swelling, Other Respiratory: No: Cough, Dry, Shortness of breath, SOB with excertion, Wheezing, Hemoptysis, Pleuritic Pain, Sputum, Wheezing, Other Cardiovascular: No: Chest Pain, Palpitations, Orthopnea, Paroxysmal Noc. Dyspnea, Edema, Lt Headedness, Other Gastrointestinal: Abdominal Pain, Constipation, Hematochezia; No: Nausea, Vomiting, Diarrhea, Melena, Other Genitourinary: Dysuria, Frequency, Incontinence; No Hematuria, No Retention, No Other Musculoskeletal: No: other, neck pain, shoulder pain, arm pain, back pain, hand pain, leg pain, foot pain Skin: No: Rash, Lesions, Jaundice, Bruising, Other Neurological: No: Weakness, Numbness, Incoordination, Change in speech, Confusion, Seizures, Other Allergies: Coded Allergies: [place] Flavor (Verified Allergy, Severe, 06/25/24) itching in the tongue with fresh mangoes per patient Vital Signs Vital Signs Date Time Temp Pulse Resp B/P (MAP) Pulse Ox O2 Delivery O2 Flow Rate FiO2 10/26/24 05:47 98.1 94 16 133/89 (104) 100 98.1 Physical Exam Vital Signs Date Time Temp Pulse Resp B/P (MAP) Pulse Ox O2 Delivery O2 Flow Rate FiO2 10/25/24 19:47 97.7 103 18 102/69 (80) 99 Exam Physical examination: General Appearance: Alert, Oriented X3, Cooperative, No acute distress HEENT: Atraumatic, PERRLA, EOMI, Mucous membrane moist/pink Respiratory: Clear to auscultation, Normal air movement Cardiovascular: Regular rate, Normal S1, Normal S2, No murmurs, no chest wall tenderness Abdominal: Abdomen is mildly distended, soft, sluggish bowel sounds, mild tenderness in the rt hypochondria region, No hepatospenomegaly, No masses Extremities: No clubbing, No cyanosis, No edema, Normal pulses, No tenderness/swelling Skin: No rashes, No breakdown, No significant lesion Neuro: Normal gait, Normal speech, Strength at 5/5 X4 ext, Normal tone, Sensation intact, grossly intact cranial nerves Psych/Mental Status: Mental status NL, Mood NL Labs/Diagnostic Data Labs Test 10/26/24 06:42 10/26/24 05:38 10/25/24 20:20 10/25/24 19:54 Range/Units POC Glucose 382 H 70-106 mg/dl White Blood Count 5.2 # 4.4-10.8 10^3/uL Red Blood Count 4.15 4.0-5.20 10^6/uL Hemoglobin 10.0 L 12.2-16.2 g/dL Hematocrit 30.1 L 36.0-46.0 % Mean Corpuscular Volume 72.4 L 80.0-100.0 fL Mean Corpuscular Hemoglobin 24.0 L 28.0-32.0 pg Mean Corpuscular Hemoglobin Concent 33.2 32.0-36.0 g/dL Red Cell Distribution Width 16.5 H 11.8-14.3 % Platelet Count 209 140-450 10^3/uL Mean Platelet Volume 10.1 6.9-10.8 fL Neutrophils (%) (Auto) 64.4 37.0-80.0 % Lymphocytes (%) (Auto) 24.6 10.0-50.0 % Monocytes (%) (Auto) 7.5 0.0-12.0 % Eosinophils (%) (Auto) 3.0 0.0-7.0 % Basophils (%) (Auto) 0.5 0.0-2.0 % Neutrophils # (Auto) 3.3 1.6-8.6 10 ^3/uL Lymphocytes # (Auto) 1.3 0.4-5.4 10 ^3/uL Monocytes # (Auto) 0.4 0-1.3 10 ^3/uL Eosinophils # (Auto) 0.2 0-0.8 10 ^3/uL Basophils # (Auto) 0 0-0.2 10 ^3/uL Nucleated Red Blood Cells 0.0 % Sodium Level 134 L 136-145 mmol/L Potassium Level 3.3 L 3.5-5.1 mmol/L Chloride Level 98 98-107 mmol/L Carbon Dioxide Level 28 20-31 mmol/L Anion Gap 8 5-15 Blood Urea Nitrogen 15 9-23 mg/dL Creatinine 1.13 H 0.550-1.02 mg/dL Glomerular Filtration Rate Calc 66 >90 mL/min BUN/Creatinine Ratio 13.3 10.0-20.0 Serum Glucose 368 H 74-106 mg/dL Calcium Level 9.7 8.7-10.4 mg/dL Iron Level 16 L 50-170 ug/dL Total Iron Binding Capacity 233 L 250-425 ug/dL Percent Iron Saturation 6.9 L 15-50 % Ferritin 51.7 10-291 ng/mL Hemoglobin A1c 13.4 H <5.7 % A1C Lactic Acid Level 1.3 0.4-2.0 mmol/L Total Bilirubin 0.3 0.2-1.0 mg/dL Aspartate Amino Transferase (AST) 9 L 13-40 U/L Alanine Aminotransferase (ALT) < 9 7-40 U/L Alkaline Phosphatase 122 H 46-116 U/L Troponin I High Sensitivity < 3 L </=34 ng/L Total Protein 8.2 5.7-8.2 g/dL Albumin 3.8 3.2-4.8 g/dL Lipase 44 12-53 U/L Thyroid Stimulating Hormone (TSH) 0.92 0.55-4.78 uIU/mL Free Thyroxine (T4) Calculated 1.22 0.89-1.76 ng/dL Follicle Stimulating Hormone 3.60 SEE BELOW IU/L Luteinizing Hormone 0.9 IU/L Prolactin 4.31 2.8-29.2 ng/mL Urine Color Colorless Yellow Urine Clarity Turbid H Clear Urine pH 6.0 5.0-9.0 Urine Specific [place] 1.003 1.001-1.035 Urine Protein 1+ H Negative Urine Ketones Negative Negative Urine Blood 1+ H Negative /uL Urine Nitrite Negative Negative Urine Bilirubin Negative Negative Urine Urobilinogen Normal Negative mg/dL Urine Leukocyte Esterase 3+ Negative /uL Urine RBC 23 0 - 4 /hpf Urine WBC 216 0 - 5 /hpf Urine Squamous Epithelial Cells Few <5 /hpf Urine Amorphous Crystals Few None Seen /hpf Urine Bacteria Many H None Seen /hpf Urine Glucose 4+ H Normal mg/dL Urine Test Negative Negative Urine Opiates Screen Neg NEGATIVE Urine Fentanyl Screen Neg NEGATIVE Urine Barbiturates Screen Neg NEGATIVE Urine Phencyclidine Screen Neg NEGATIVE Urine Amphetamines Screen Neg NEGATIVE Urine Benzodiazepines Screen Neg NEGATIVE Urine Cocaine Screen Neg NEGATIVE Urine Cannabinoids Screen Neg NEGATIVE Assessment Bilateral hydronephrosis Bladder distention Plan/Recommendation Cystoscopy with bilateral retrograde pyelogram, possible bilateral stents placement Johnson to gravity Plan discussed with: Patient, Other ORLANDO TRAN MD Oct 26, 2024 09:41
[2024-10-26] MEDS: SODIUM CHLORIDE 0.9% 1,000 ML IV SCH (10:44)
[2024-10-26] MEDS: cefTRIAXone 1GM/50ML D5W 50 ML IV SCH (10:45)
[2024-10-26] MEDS: DEXTROSE 50% SYRINGE 50 ML IV ONE (11:16)
[2024-10-26] MEDS: IOHEXOL 300 MG/ML 100ML BOTTLE IJ ONE ×2 (11:27→13:36)
--- NOTE | 2024-10-26 12:03 | DVHPNRES ---
Progress Note Date Seen: Oct 26, 2024 Resident Creating Document: WILBER WALKER MAC Has the PT tested + for MRSA If YES, has PT been informed?: No Medical Necessity Reason Pt with a Central, PICC or Fol: No Subjective Review of Systems A 34-year-old female with a history of type 1 diabetes mellitus and sickle cell trait presented to the ED with a chief complaint of not having a bowel movement since August 2024. She also reported right-sided abdominal pain, including the right subcostal, hypochondriac, and right lumbar regions, but mentioned passing flatus. She normally has a bowel movement every other week since childhood. Additionally, she reported low-grade fever, night sweats, a 10 lb weight loss over four months, and nighttime incontinence requiring diaper use for the past month. She also complained of amenorrhea since May 2024 and is not using any control, with her last child born in 2018 via . She denies nausea, vomiting, hemoptysis, hematemesis, chest pain, shortness of breath, and dizziness. PMHx: Diabetes type 1, sickle cell trait PSHx: 3 Family history: Diabetes type 1, lupus, CHF, sickle cell traits Social history: Lives with the family Home medication: Allergic history: Objective vital signs Vital Sign Date Time Temp Pulse Resp B/P (MAP) Pulse Ox O2 Delivery O2 Flow Rate FiO2 10/26/24 09:00 98.7 102 17 126/83 (97) 99 98.7 medications Current Medications Medications Dose Ordered Sig/Tiara Route Start Time Stop Time Status Last Admin Dose Admin Sodium Chloride 1,000 ml @ 75 mls/hr [id number] IV 10/25/24 23:30 10/26/24 10:44 75 MLS/HR Ceftriaxone Sodium 50 ml @ 100 mls/hr DAILY IV 10/26/24 10:00 10/26/24 10:45 100 MLS/HR Docusate Sodium 100 mg BID PO 10/26/24 10:00 Insulin Glargine 15 units QAM SC 10/26/24 07:00 10/26/24 07:02 15 UNITS Diagnostic Test (Pha) 1 strip ACHS 10/26/24 07:00 10/26/24 06:45 1 STRIP Insulin Human Regular ACHS SC 10/26/24 07:00 10/26/24 06:50 10 UNITS Dextrose 50 ml UD PRN IV 10/26/24 01:45 Pantoprazole Sodium 40 mg DAILY@0600 PO 10/26/24 06:00 10/26/24 06:35 40 MG Enteral Nutritional Formula 240 ml TIDWM PO 10/26/24 12:00 UNV laboratory and microbiology Laboratory Tests 10/26/24 05:38 Test 10/26/24 05:38 Range/Units Serum Glucose 368 H 74-106 mg/dL My Orders My Orders Orders - WILBER WALKER Procedure Category Date Status Time Ct Ab Pel With Iv Con CT 10/26/24 Logged Only 11:15 WILBER WALKER Oct 26, 2024 12:03
[2024-10-26] MEDS ORDERED: MEPERIDINE HCL (25 MG/ML) 1ML VIAL ONE (13:45)
[2024-10-26] MEDS ORDERED: fentaNYL CITRATE 100 MCG/2 ML VL ONE (13:46)
[2024-10-26] MEDS ORDERED: MIDAZOLAM HCL 2MG/2ML 2ml VIAL (1mg/ml) ONE (13:46)
[2024-10-26] MEDS ORDERED: PROPOFOL 10 MG/ML 20 ML IV ONE (14:25)
[2024-10-26] MEDS ORDERED: DexAMETHasone SOD PHOS 10MG/1ML VIAL INJ ONE (14:25)
--- NOTE | 2024-10-26 14:33 | DVHOP2 ---
Operative Report - 2 Report Details Date: 10/26/24 Preop Diagnosis: Bilateral hydronephrosis Distended bladder with possible bladder mass Overflow urinary incontinence Postop Diagnosis: Same Surgeon: Orlando Tran Anesthesiologist: Elfego Anesthesia: General Consent: The patient was informed of the risks and benefits of the procedure. These include but are not limited to complications of anesthesia, postoperative infection, incomplete relief of symptoms, recurrence of symptoms, damage to blood vessels, nerves and tendons, deep venous thrombosis, pulmonary embolism and possible need for repeat surgery in the future. Indications for Surgery: Patient has urinary retention and bilateral hydronephrosis Name of Procedure Performed Cystoscopy with Johnson insertion Procedure Details Procedure Details: Patient was taken to the operating room and underwent general anesthesia. She was placed in the lithotomy position with the area of the genitalia prepped and draped in usual sterile manner. Twenty-one Slovenian rigid cystoscope was used to inspect the urethra in the bladder. Bladder was distended with over 650 cc of urine evacuated. Ureteric orifice appeared to be in normal position bilaterally. Given the findings of distended bladder, I elected not to place a ureteral catheter sheath for retrograde studies. We will leave the Johnson catheter to decompress the bladder and re-evaluate the kidneys with ultrasound to see if hydronephrosis are persistent. If hydronephrosis persists, we will consider the option of nephrostomy tube placements Specimen: None Condition Fair Disposition ORLANDO TRAN MD Oct 26, 2024 14:33
--- NOTE | 2024-10-26 16:06 | DVH ---
RENAL ULTRASOUND CLINICAL HISTORY: Grade 2 bilateral hydronephrosis TECHNIQUE: Multiple ultrasound images of the kidneys and bladder were obtained. COMPARISON: 10/25/2024 FINDINGS: The right kidney measures 11.3 cm in length. The left kidney measures 11.6 cm. There is moderate bila teral renal hydronephrosis. There is no sonographic evidence of nephrolithiasis. There is a Johnson catheter in the bladder which is decompressed. IMPRESSION: 1. Moderate bilateral renal hydronephrosis. 2. There is Johnson catheter in the bladder which is decompressed. HS:Y
--- NOTE | 2024-10-26 16:42 | DVH ---
Exam: CT CT AB PEL WITH IV CON ONLY History: Bladder mass COMPARISON: None Technique: Multidetector spiral CT of the abdomen and pelvis was performed from lung bases to pubic symphysis. Intravenous contrast was administered during this examination. Portal venous imaging was obtained. Axial, coronal and sagittal multiplanar reformats were performed by the technologist on a separate workstation. Radiation Dose : Abdomen/Pelvis: CTDIvol 5 mGy, DLP 269 mGy*cm. CONTRAST: Type of contrast: Omni 300 Contrast injected: 100 mL Findings: Lung Bases: No acute or significant lung base finding. Normal heart size. No pleural or pericardial effusion. Liver: The liver is normal in size. No focal lesions. Normal hepatic vascular enhancement. Gallbladder and biliary Tree: Unremarkable Spleen: Unremarkable Pancreas: The pancreas is normal in appearance without focal lesions or abnormal enhancement. Adrenal Glands: Unremarkable Kidneys: Moderate bilateral hydronephrosis and hydroureter. Bladder: Diffuse wall thickening with more focal wall thickening at the superior margin measuring up to [address]. Bowel: The stomach is grossly normal in appearance. Small bowel and colon are normal in caliber and d istribution. Normal appendix is visualized in the right lower quadrant without findings of appendici tis. Ascites: Absent Lymphadenopathy: No mesenteric, retroperitoneal or periportal lymphadenopathy. Abdominal wall and Mesentery: Unremarkable. Vasculature: The visualized abdominal aorta is normal in size and caliber. Abdominal and pelvic vess els demonstrate normal enhancement. Pelvic Organs: Unremarkable Musculoskeletal: No aggressive focal bony lesions, acute fractures or dislocation. IMPRESSION: 1. Diffuse wall thickening of the bladder with more focal thickening at the superior margin could rep resent known bladder cancer. Moderate bilateral hydronephrosis. Urology evaluation is recommended. Co nsider cystoscopy with biopsy. Radiation optimization: All CT scans at this facility use at least one of these dose optimization nilam hniques: Automated exposure control mA and/or kV adjustment per patient size (includes targeted exams where dose is matched to clinical indication) or iterative reconstruction. HS:Y
[2024-10-26] MEDS: DOCUSATE SOD 100 MG CAP PO SCH (17:10)
[2024-10-26] MEDS: PIPERACILLIN-TAZOB 3.375GM 100 ML IV ONE (17:10)
[2024-10-26] MEDS: Ensure HIGH Protein Chocolate 8oz Bottle PO SCH (17:10)
[2024-10-26] MEDS: ONDANSETRON HCL 4 MG/2 ML VIAL IM ONE (17:44)
[2024-10-26] MEDS: ONDANSETRON HCL 4 MG/2 ML VIAL IV PRN (17:44)
[2024-10-26] MEDS ORDERED: cloNIDine HCL 0.1 MG TAB PO PRN (18:00)
[2024-10-26] MEDS: HYDROcodone-ACET 5/325MG TAB PO PRN (18:27)
[2024-10-26 18:42] LABS: Follicle Stimulating Hormone 2.63 IU/L (SEE BELOW)
[2024-10-26 18:43] LABS: Leuteinizing Hormone 2.5 IU/L; Prolactin 5.93 ng/mL (2.8-29.2); Thyroid Stimulating Hormone 0.51 uIU/mL (0.55-4.78)
[2024-10-26 19:02] LABS: Beta HCG, Quantitative 0.6 mIU/mL (1.5-4.2)
--- NOTE | 2024-10-26 19:38 | DVHPNRES ---
Progress Note Date Seen: Oct 26, 2024 Resident Creating Document: WILBER WALKER MAC Has the PT tested + for MRSA If YES, has PT been informed?: No Medical Necessity Reason Pt with a Central, PICC or Fol: No Subjective Review of Systems A 34-year-old female with a history of type 1 diabetes mellitus and sickle cell trait presented to the ED with a chief complaint of not having a bowel movement since August 2024. She also reported right-sided abdominal pain, including the right subcostal, hypochondriac, and right lumbar regions, but mentioned passing flatus. She normally has a bowel movement every other week since childhood. Additionally, she reported low-grade fever, night sweats, a 10 lb weight loss over four months, and nighttime incontinence requiring diaper use for the past month. She also complained of amenorrhea since May 2024 and is not using any control, with her last child born in 2018 via . She denies nausea, vomiting, hemoptysis, hematemesis, chest pain, shortness of breath, and dizziness. PMHx: Diabetes mellitus type 1, sickle cell trait PSHx: 3 C section Family history: Diabetes type 1, lupus Allergic history: [place] flavor Today, patient seen and examined at the bedside. Patient was still complaining of abdominal pain and generalized weakness. Objective vital signs Vital Sign Date Time Temp Pulse Resp B/P (MAP) Pulse Ox O2 Delivery O2 Flow Rate FiO2 10/26/24 16:32 97.7 83 18 163/108 (126) 96 97.7 10/26/24 16:24 Room Air* 0 21 medications Current Medications Medications Dose Ordered Sig/Tiara Route Start Time Stop Time Status Last Admin Dose Admin Sodium Chloride 1,000 ml @ 75 mls/hr [id number] IV 10/25/24 23:30 10/26/24 17:11 75 MLS/HR Ceftriaxone Sodium 50 ml @ 100 mls/hr DAILY IV 10/26/24 10:00 10/26/24 10:45 100 MLS/HR Docusate Sodium 100 mg BID PO 10/26/24 10:00 Insulin Glargine 15 units QAM SC 10/26/24 07:00 10/26/24 07:02 15 UNITS Diagnostic Test (Pha) 1 strip ACHS 10/26/24 07:00 10/26/24 17:00 1 STRIP Insulin Human Regular ACHS SC 10/26/24 07:00 10/26/24 17:00 2 UNITS Dextrose 50 ml UD PRN IV 10/26/24 01:45 Pantoprazole Sodium 40 mg DAILY@0600 PO 10/26/24 06:00 10/26/24 06:35 40 MG Enteral Nutritional Formula 240 ml TIDWM PO 10/26/24 12:00 10/26/24 18:13 240 ML Acetaminophen 650 mg Q4HP PRN PO 10/26/24 17:30 Acetaminophen/ Hydrocodone Bitart 1 tab Q4HPRN PRN PO 10/26/24 17:30 10/26/24 18:27 1 TAB Ondansetron HCl 4 mg Q4HPRN PRN IV 10/26/24 17:30 10/26/24 17:44 4 MG Clonidine HCl 0.1 mg Q8HP PRN PO 10/26/24 18:00 Examination General Appearance: Alert, Oriented X3, Cooperative, cachectic looking severe sick HEENT: Atraumatic, PERRLA, EOMI, Mucous membrane moist/pink Respiratory: Clear to auscultation, Normal air movement Cardiovascular: Regular rate, Normal S1, Normal S2, No murmurs, no chest wall tenderness Abdominal: Abdomen was distended, with suprapubic tenderness Extremities: No clubbing, No cyanosis, No edema, Normal pulses, No tenderness/swelling Skin: No rashes, No breakdown, No significant lesion Neuro: Normal gait, Normal speech, Strength at 5/5 X4 ext, Normal tone, Sensation intact, Cranial nerves 3-12 NL, Reflexes 2+ Psych/Mental Status: Mental status NL, Mood NL laboratory and microbiology Laboratory Tests 10/26/24 05:38 Test 10/26/24 05:38 Range/Units Serum Glucose 368 H 74-106 mg/dL Labs and/or images reviewed: Labs reviewed by me, Image(s) reviewed by me Problem List/Assessment/Plan Problem List/Assessment/Plan Chachexia, 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 Moderate bilateral hydronephrosis Urology is on the board, performed cystescopy and put transurethral catheter Post urethral catheter placement renal US shows, moderate bilateral renal hydronephrosis CHANDRIKA, likely VMN IV NS UTI, unspecified location UA shows UTI picture Urine culture Empiric antibiotics, Cftriaxone Sickle cell trait Moderate anemia, microcytic hypochromic monitoring DM type 1, uncontrolled HBA1c is 13.4 Inj. lantus and aggressive SS Mild hyponatremia, monitoring Hypokalemia, repleted Possible Euthyroid sick syndrome TSH is decresed, free T4 is normal DIET: Diabetic diet wit Ensure high protein DVT PROPHYLAXIS: SCDs GI PROPHYLAXIS:: Protonix BOWEL REGIMEN: COlace 100mg BID CODE STATUS: Goal of Care discussed for more than 23 min, full code DISPOSITION: Med/Surg Patient's status discussed with the patient. Case discussed with Dr. Beaver Plan discussed with: Patient, Other (RN) My Orders My Orders Orders - WILBER WALKER RESDIENT Procedure Category Date Status Time Ct Ab Pel With Iv Con CT 10/26/24 Resulted Only 11:15 Consistent DIET 10/26/24 Transmitted Carb(Ccho)Diabetes Dinner * Dietary Consult CONS 10/26/24 Transmitted 16:51 Acetaminophen Tablet PHA 10/26/24 In Process (Tylenol Tablet) 17:30 Hydrocodone-Acet PHA 10/26/24 In Process 5/325mg Tab ([place] 17:30 Ondansetron Hcl PHA 10/26/24 In Process (Zofran) 17:30 Clonidine Hcl Tablet PHA 10/26/24 In Process (Catapres Tablet) 18:00 Date of Service: Oct 26, 2024 Billing Provider: GLO LOPEZ MD Common Visit Codes: [id number] INP/OBS CARE(HIGH) WILBER WALKER RESDIENT Oct 26, 2024 19:38 GLO LOPEZ MD Oct 30, 2024 11:30
[2024-10-26] MEDS ORDERED: HYDROcodone-ACET 5/325MG TAB PO PRN (20:45)
[2024-10-26] MEDS ORDERED: MELATONIN 5 MG TAB PO PRN (20:45)
[2024-10-26] MEDS: ACETAMINOPHEN 325 MG TAB PO PRN (21:02)
[2024-10-27] VITALS (9 sets, daily range): BP systolic 94–146; BP diastolic 62–101; PULSE 87–105; RESP 17–20; TEMP 97.4–98.5; O2SAT 99–100
[2024-10-27] MEDS ORDERED: HYDROcodone-ACET 5/325MG TAB PO PRN (07:30)
[2024-10-27] MEDS: SODIUM CHLORIDE 0.9% 1,000 ML IV SCH (07:56)
[2024-10-27 08:11] LABS: Basophils # (auto) 0 10 ^3/uL (0-0.2); Basophils % (auto) 0.3 % (0.0-2.0); Eosinophils # (auto) 0.1 10 ^3/uL (0-0.8); Eosinophils % (auto) 1.2 % (0.0-7.0); Hematocrit 25.3 % (36.0-46.0); Hemoglobin 8.5 g/dL (12.2-16.2); Monocytes # (auto) 0.4 10 ^3/uL (0-1.3); Monocytes % (auto) 6.7 % (0.0-12.0); Neutrophils # (auto) 3.9 10 ^3/uL (1.6-8.6)
[2024-10-27 08:13] LABS: Lymphocytes # (auto) 1.5 10 ^3/uL (0.4-5.4); Lymphocytes % (auto) 25.7 % (10.0-50.0); Mean Corpuscular Hemoglobin 23.9 pg (28.0-32.0); Mean Corpuscular Hgb Conc. 33.7 g/dL (32.0-36.0); Mean Corpuscular Volume 70.9 fL (80.0-100.0); Neutrophils % (auto) 66.1 % (37.0-80.0); Platelet Count (auto) 192 10^3/uL (140-450); Red Blood Cells 3.56 10^6/uL (4.0-5.20); Red Cell Distribution Width 16.3 % (11.8-14.3); White Blood Cell 5.9 10^3/uL (4.4-10.8)
[2024-10-27 08:30] LABS: Alkaline Phosphatase 98 U/L (46-116); Anion Gap 8 (5-15); BUN/Creatinine Ratio 11.3 (10.0-20.0); Blood Urea Nitrogen 11 mg/dL (9-23); Calcium 8.8 mg/dL (8.7-10.4); Carbon Dioxide 25 mmol/L (20-31); Chloride 101 mmol/L (98-107); Potassium 3.6 mmol/L (3.5-5.1)
[2024-10-27 08:31] LABS: Total Protein 6.4 g/dL (5.7-8.2)
[2024-10-27 08:32] LABS: Alanine Aminotransferase < 9 U/L (7-40); Aspartate Aminotransferase 9 U/L (13-40); Bilirubin, Total < 0.2 mg/dL (0.2-1.0); Glucose 302 mg/dL (74-106); Sodium 134 mmol/L (136-145)
[2024-10-27] MEDS: ERGOCALCIFEROL 50,000 UNIT(1.25MG) CAP PO SCH (09:30)
[2024-10-27] MEDS: HYDROcodone-ACET 5/325MG TAB PO PRN (12:52)
--- NOTE | 2024-10-27 16:47 | DVHPNRES ---
Progress Note Date Seen: Oct 27, 2024 Resident Creating Document: WILBER WALKER MAC Has the PT tested + for MRSA If YES, has PT been informed?: No Medical Necessity Reason Pt with a Central, PICC or Fol: No Subjective Review of Systems A 34-year-old female with a history of type 1 diabetes mellitus and sickle cell trait presented to the ED with a chief complaint of not having a bowel movement since August 2024. She also reported right-sided abdominal pain, including the right subcostal, hypochondriac, and right lumbar regions, but mentioned passing flatus. She normally has a bowel movement every other week since childhood. Additionally, she reported low-grade fever, night sweats, a 10 lb weight loss over four months, and nighttime incontinence requiring diaper use for the past month. She also complained of amenorrhea since May 2024 and is not using any control, with her last child born in 2018 via . She denies nausea, vomiting, hemoptysis, hematemesis, chest pain, shortness of breath, and dizziness. PMHx: Diabetes mellitus type 1, sickle cell trait PSHx: 3 C section Family history: Diabetes type 1, lupus Allergic history: Ricardo flavor Today, patient seen and examined at the bedside. Patient was still complaining of abdominal pain and generalized weakness. Patient reports: No new complaints, Feels better Changes from previous H/P or p: No Changes Objective vital signs Vital Sign Date Time Temp Pulse Resp B/P (MAP) Pulse Ox O2 Delivery O2 Flow Rate FiO2 10/27/24 13:00 98.0 97 20 107/81 (90) 100 98.0 10/27/24 08:15 Room Air* 0 21 Total Intake and Output 10/26/24 10/26/24 10/27/24 14:59 22:59 06:59 Intake Total 400 ml 440 ml Output Total 650 ml 200 ml 525 ml Balance -250 ml 240 ml -525 ml medications Current Medications Medications Dose Ordered Sig/Tiara Route Start Time Stop Time Status Last Admin Dose Admin Ceftriaxone Sodium 50 ml @ 100 mls/hr DAILY IV 10/26/24 10:00 10/27/24 10:00 100 MLS/HR Insulin Glargine 15 units QAM SC 10/26/24 07:00 10/27/24 06:39 15 UNITS Diagnostic Test (Pha) 1 strip ACHS 10/26/24 07:00 10/27/24 11:30 1 STRIP Insulin Human Regular ACHS SC 10/26/24 07:00 10/27/24 11:30 4 UNITS Dextrose 50 ml UD PRN IV 10/26/24 01:45 Pantoprazole Sodium 40 mg DAILY@0600 PO 10/26/24 06:00 10/27/24 06:37 40 MG Enteral Nutritional Formula 240 ml TIDWM PO 10/26/24 12:00 10/27/24 12:11 240 ML Acetaminophen 650 mg Q4HP PRN PO 10/26/24 17:30 10/26/24 21:02 650 MG Ondansetron HCl 4 mg Q4HPRN PRN IV 10/26/24 17:30 10/26/24 17:44 4 MG Clonidine HCl 0.1 mg Q8HP PRN PO 10/26/24 18:00 Sodium Chloride 1,000 ml @ 100 mls/hr Q10H IV 10/27/24 07:15 10/27/24 07:56 100 MLS/HR Ergocalciferol 50,000 unit Q7D PO 10/27/24 09:30 10/27/24 09:30 50,000 UNIT Docusate Sodium 200 mg BID PO 10/27/24 22:00 Acetaminophen/ Hydrocodone Bitart 1 tab Q4HPRN PRN PO 10/27/24 10:45 10/27/24 12:52 1 TAB Examination General Appearance: Alert, Oriented X3, Cooperative, cachectic looking severe sick HEENT: Atraumatic, PERRLA, EOMI, Mucous membrane moist/pink Respiratory: Clear to auscultation, Normal air movement Cardiovascular: Regular rate, Normal S1, Normal S2, No murmurs, no chest wall tenderness Abdominal: Abdomen was distended, with suprapubic tenderness Extremities: No clubbing, No cyanosis, No edema, Normal pulses, No tenderness/swelling Skin: No rashes, No breakdown, No significant lesion Neuro: Normal gait, Normal speech, Strength at 5/5 X4 ext, Normal tone, Sensation intact, Cranial nerves 3-12 NL, Reflexes 2+ Psych/Mental Status: Mental status NL, Mood NL laboratory and microbiology Laboratory Tests 10/27/24 07:04 Test 10/27/24 07:04 Range/Units Serum Glucose 302 H 74-106 mg/dL Microbiology Date/Time Source Procedure Growth Status 10/25/24 19:54 Voided Urine Urine Culture - Preliminary Resulted Labs and/or images reviewed: Labs reviewed by me, Image(s) reviewed by me Problem List/Assessment/Plan Problem List/Assessment/Plan emili Butcherly due to bladder neoplasm Severe Malnutrition, BMI is less than 75% ideal body weight Ensure jo protein Dietary Cons for Malnutrition Urinary retention Possible urinary bladder cancer Moderate bilateral hydronephrosis CT shows, diffuse wall thickening of the bladder with more focal thickening at the superior margin could represent known bladder cancer. Moderate bilateral hydronephrosis Urology is on the board, performed cystescopy and put transurethral catheter Post urethral catheter placement renal US shows, moderate bilateral renal hydronephrosis CHANDRIKA, likely VMN IV NS UTI, unspecified location UA shows UTI picture Urine culture Empiric antibiotics, Cftriaxone Sickle cell trait Moderate anemia, microcytic hypochromic monitoring DM type 1, uncontrolled HBA1c is 13.4 Inj. lantus and aggressive SS Mild hyponatremia, monitoring Hypokalemia, repleted Possible Euthyroid sick syndrome TSH is decresed, free T4 is normal DIET: Diabetic diet wit Ensure high protein DVT PROPHYLAXIS: SCDs GI PROPHYLAXIS:: Protonix BOWEL REGIMEN: COlace 100mg BID CODE STATUS: Goal of Care discussed for more than 23 min, full code DISPOSITION: Med/Surg Patient's status discussed with the patient. Case discussed with Dr. Beaver Plan discussed with: Patient, Other (RN) My Orders My Orders Orders - WILBER WALKER RESDIJAHAIRA Procedure Category Date Status Time * Dietary Consult CONS 10/26/24 Transmitted 16:51 Acetaminophen Tablet PHA 10/26/24 In Process (Tylenol Tablet) 17:30 Ondansetron Hcl PHA 10/26/24 In Process (Zofran) 17:30 Clonidine Hcl Tablet PHA 10/26/24 In Process (Catapres Tablet) 18:00 Dietary Cons For NOURISH 10/27/24 Transmitted Malnutrition 06:49 Sodium Chloride 0.9% PHA 10/27/24 In Process 07:15 Ergocalciferol PHA 10/27/24 In Process (Vitamin D 50,000 09:30 Docusate Sodium PHA 10/27/24 In Process Capsule (Colace 22:00 Hydrocodone-Acet PHA 10/27/24 In Process 5/325mg Tab ([place] 10:45 Dietary NOTICE 10/27/24 Transmitted Recommendations 12:21 * Hematology/Oncology CONS 10/27/24 Transmitted Consult 12:52 Dietary Evaluation Review Comments: Encourage high fiber foods and more fluids. offer prune juice TID and cooked vegetable and or fresh fruits with each meals. ensure high protein 240ml BID. Expected Outcomes/Goals: Having regular BMs, increased PO intake and having weight gains. Date of Service: Oct 27, 2024 Billing Provider: GLO LOPEZ MD Common Visit Codes: [id number] INP/OBS CARE(HIGH) WILBER WALKER RESDIENT Oct 27, 2024 16:47 GLO LOPEZ MD Oct 30, 2024 20:52
--- NOTE | 2024-10-27 18:54 | DVHINCON2 ---
REASON FOR CONSULTATION: Secondary amenorrhea. HISTORY OF PRESENT ILLNESS: The patient is a 34-year-old female admitted for abdominal pain, severe constipation. The patient has had no bowel movement since August. She denies having any bleeding. She has not had a period since 05/2024. The patient has not been on any oral contraception. PAST MEDICAL HISTORY: Type 1 diabetes, sickle cell disease. PAST SURGICAL HISTORY: and right breast abscess incision and drainage. SOCIAL HISTORY: Lives with family. FAMILY HISTORY: Positive for diabetes and CHF. REVIEW OF SYSTEMS: CONSTITUTIONAL: Reports weakness. RESPIRATORY: No dry cough or shortness of breath. CARDIOVASCULAR: No chest pain or palpitation. GASTROINTESTINAL: Positive for constipation, abdominal pain. GENITOURINARY: Positive for dysuria, frequency and incontinence. MUSCULOSKELETAL: No neck pain, shoulder pain. NEUROLOGICAL: No weakness or incoordination. ALLERGIES: No known drug allergies. PHYSICAL EXAMINATION: VITAL SIGNS: Stable, afebrile. HEENT: Within normal limits. CARDIOVASCULAR: Regular rate and rhythm. LUNGS: Clear to auscultation. BREASTS: Symmetrical. No masses. ABDOMEN: Mildly distended. PELVIC: External genitalia within normal. Vagina normal. Cervix grossly normal. Uterus 7 weeks size. Adnexa nonpalpable. EXTREMITIES: No clubbing, cyanosis or edema. 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 * Diabetes type 1/sickle cell trait. * Acute cystitis. RECOMMENDATIONS: The patient has multiple underlying medical illnesses that contribute to this hypothalamic dysfunction. She needs to follow up on outpatient basis for Pap smear further workup if hormonal levels such as FSH, LH, prolactin, TSH, estradiol and testosterone is recommended, which I believe has been ordered. A pelvic ultrasound reveals normal findings. At this point, we will sign off. I advised the patient to follow up outpatient. Thank you very much for this consultation. DO ALY Bueno/CORINA TID: [id number] RECEIPT: [id number]
[2024-10-27] MEDS: DOCUSATE SOD 100 MG CAP PO SCH (21:47)
[2024-10-27] MEDS ORDERED: MELATONIN 5 MG TAB PO SCH (22:00)
[2024-10-27] MEDS: THROAT LOZENGES(CEPASTAT) MT ONE (23:48)
[2024-10-28] VITALS (8 sets, daily range): BP systolic 116–149; BP diastolic 77–99; PULSE 99–116; RESP 18–20; TEMP 98–101; O2SAT 98–100
[2024-10-28 07:29] LABS: Basophils # (auto) 0 10 ^3/uL (0-0.2); Eosinophils # (auto) 0.1 10 ^3/uL (0-0.8); Lymphocytes # (auto) 0.8 10 ^3/uL (0.4-5.4); Monocytes # (auto) 0.4 10 ^3/uL (0-1.3); Neutrophils # (auto) 3.2 10 ^3/uL (1.6-8.6); White Blood Cell 4.5 10^3/uL (4.4-10.8)
[2024-10-28 07:33] LABS: Basophils % (auto) 0.5 % (0.0-2.0); Hematocrit 24.8 % (36.0-46.0); Hemoglobin 8.3 g/dL (12.2-16.2); Lymphocytes % (auto) 17.4 % (10.0-50.0); Mean Corpuscular Hemoglobin 24.1 pg (28.0-32.0); Mean Corpuscular Hgb Conc. 33.3 g/dL (32.0-36.0); Mean Corpuscular Volume 72.6 fL (80.0-100.0); Monocytes % (auto) 8.4 % (0.0-12.0); Neutrophils % (auto) 71.7 % (37.0-80.0); Platelet Count (auto) 200 10^3/uL (140-450); Red Blood Cells 3.42 10^6/uL (4.0-5.20); Red Cell Distribution Width 16.1 % (11.8-14.3)
[2024-10-28 07:35] LABS: Alkaline Phosphatase 80 U/L (46-116); Anion Gap 6 (5-15); Blood Urea Nitrogen 9 mg/dL (9-23); Carbon Dioxide 27 mmol/L (20-31); Chloride 105 mmol/L (98-107); Glucose 99 mg/dL (74-106); Potassium 3.9 mmol/L (3.5-5.1); Sodium 138 mmol/L (136-145)
[2024-10-28 07:36] LABS: Total Protein 6.2 g/dL (5.7-8.2)
[2024-10-28 07:41] LABS: Aspartate Aminotransferase 10 U/L (13-40)
[2024-10-28 07:42] LABS: Alanine Aminotransferase < 9 U/L (7-40); Bilirubin, Total < 0.2 mg/dL (0.2-1.0); Calcium 8.2 mg/dL (8.7-10.4)
--- NOTE | 2024-10-28 10:12 | DVHDSRES ---
Discharge Summary Date of Admission Resident Creating Document: WILBER WALKER RESDIENT Oct 25, 2024 at 23:20 Labs/Diagnostic Data: Laboratory Results Test 10/28/24 06:04 10/28/24 06:00 10/27/24 07:04 10/26/24 17:48 POC Glucose 120 mg/dl (70-106) White Blood Count 4.5 10^3/uL (4.4-10.8) Red Blood Count 3.42 10^6/uL (4.0-5.20) Hemoglobin 8.3 g/dL (12.2-16.2) Hematocrit 24.8 % (36.0-46.0) Mean Corpuscular Volume 72.6 fL (80.0-100.0) Mean Corpuscular Hemoglobin 24.1 pg (28.0-32.0) Mean Corpuscular Hemoglobin Concent 33.3 g/dL (32.0-36.0) Red Cell Distribution Width 16.1 % (11.8-14.3) Platelet Count 200 10^3/uL (140-450) Mean Platelet Volume 8.8 fL (6.9-10.8) Neutrophils (%) (Auto) 71.7 % (37.0-80.0) Lymphocytes (%) (Auto) 17.4 % (10.0-50.0) Monocytes (%) (Auto) 8.4 % (0.0-12.0) Eosinophils (%) (Auto) 2.0 % (0.0-7.0) Basophils (%) (Auto) 0.5 % (0.0-2.0) Neutrophils # (Auto) 3.2 10 ^3/uL (1.6-8.6) Lymphocytes # (Auto) 0.8 10 ^3/uL (0.4-5.4) Monocytes # (Auto) 0.4 10 ^3/uL (0-1.3) Eosinophils # (Auto) 0.1 10 ^3/uL (0-0.8) Basophils # (Auto) 0 10 ^3/uL (0-0.2) Nucleated Red Blood Cells 0.0 % Sodium Level 138 mmol/L (136-145) Potassium Level 3.9 mmol/L (3.5-5.1) Chloride Level 105 mmol/L (98-107) Carbon Dioxide Level 27 mmol/L (20-31) Anion Gap 6 (5-15) Blood Urea Nitrogen 9 mg/dL (9-23) Creatinine 0.90 mg/dL (0.550-1.02) Glomerular Filtration Rate Calc 87 mL/min (>90) BUN/Creatinine Ratio 10.0 (10.0-20.0) Serum Glucose 99 mg/dL (74-106) Calcium Level 8.2 mg/dL (8.7-10.4) Total Bilirubin < 0.2 mg/dL (0.2-1.0) Aspartate Amino Transferase (AST) 10 U/L (13-40) Alanine Aminotransferase (ALT) < 9 U/L (7-40) Alkaline Phosphatase 80 U/L (46-116) Total Protein 6.2 g/dL (5.7-8.2) Albumin 3.0 g/dL (3.2-4.8) Vitamin B12 Level 1082 pg/mL (211-911) Vitamin D 25-Hydroxy 13.4 ng/mL (30.0-100) Thyroid Stimulating Hormone (TSH) 0.51 uIU/mL (0.55-4.78) Follicle Stimulating Hormone 2.63 IU/L (SEE BELOW) Luteinizing Hormone 2.5 IU/L Prolactin 5.93 ng/mL (2.8-29.2) Beta HCG, Quantitative 0.6 mIU/mL (1.5-4.2) Test 10/26/24 05:38 10/25/24 20:20 10/25/24 19:54 Iron Level 16 ug/dL (50-170) Total Iron Binding Capacity 233 ug/dL (250-425) Percent Iron Saturation 6.9 % (15-50) Ferritin 51.7 ng/mL (10-291) Hemoglobin A1c 13.4 % A1C (<5.7) Lactic Acid Level 1.3 mmol/L (0.4-2.0) Troponin I High Sensitivity < 3 ng/L (</=34) Lipase 44 U/L (12-53) Free Thyroxine (T4) Calculated 1.22 ng/dL (0.89-1.76) Urine Color Colorless (Yellow) Urine Clarity Turbid (Clear) Urine pH 6.0 (5.0-9.0) Urine Specific [place] 1.003 (1.001-1.035) Urine Protein 1+ (Negative) Urine Ketones Negative (Negative) Urine Blood 1+ /uL (Negative) Urine Nitrite Negative (Negative) Urine Bilirubin Negative (Negative) Urine Urobilinogen Normal mg/dL (Negative) Urine Leukocyte Esterase 3+ /uL (Negative) Urine RBC 23 /hpf (0 - 4) Urine WBC 216 /hpf (0 - 5) Urine Squamous Epithelial Cells Few /hpf (<5) Urine Amorphous Crystals Few /hpf (None Seen) Urine Bacteria Many /hpf (None Seen) Urine Glucose 4+ mg/dL (Normal) Urine Test Negative (Negative) Urine Opiates Screen Neg (NEGATIVE) Urine Fentanyl Screen Neg (NEGATIVE) Urine Barbiturates Screen Neg (NEGATIVE) Urine Phencyclidine Screen Neg (NEGATIVE) Urine Amphetamines Screen Neg (NEGATIVE) Urine Benzodiazepines Screen Neg (NEGATIVE) Urine Cocaine Screen Neg (NEGATIVE) Urine Cannabinoids Screen Neg (NEGATIVE) Other Laboratory Tests 10/28/24 06:00 Condition at Discharge: Fair Final Diagnosis/Problems List Same Discharge Disposition: Discharge Statement: "Patient was advised to return to the ER or call 911 if any headaches, dizziness, shortness of breath, chest pain, abdominal pain, bleeding, fevers, or worsening of medical condition. Patient was counseled about treatment plan, medications, possible side effects, patientverbalized understanding. All questions were answered to the best of my ability. This discharge took greater then 30 minutes in planning, reviewing documentation, counseling the patient, and discussing with other team members." ASSESSMENT ASSESSMENT Assessment Same TONIE LEGGETT RESIDENT Oct 28, 2024 10:12
[2024-10-28] MEDS: MORPHINE SULFATE INJ 2 MG/ml SYRG IV PRN (11:32)
--- NOTE | 2024-10-28 11:37 | DVH ---
CHEST RADIOGRAPH Indication: Chest Pain Technique: Single frontal view of the chest was obtained COMPARISON: XY CHEST XRAY 1 VIEW on DOS: 10/26/24, XY CHEST PORTABLE on DOS: 06/25/24 FINDINGS: Lines and Tubes: None Lungs: Clear Pleura: No effusion. No pneumothorax. Cardiomediastinal contours: Unremarkable Bones: Unremarkable IMPRESSION: 1. No acute disease.
[2024-10-28] MEDS: NITROGLYCERIN 0.4 MG SL TAB SL PRN (12:19)
[2024-10-29] VITALS (7 sets, daily range): BP systolic 97–133; BP diastolic 65–88; PULSE 97–120; RESP 17–20; TEMP 97.8–102.8; O2SAT 91–99
[2024-10-29 10:10] LABS: Basophils # (auto) 0 10 ^3/uL (0-0.2); Eosinophils # (auto) 0.2 10 ^3/uL (0-0.8); Eosinophils % (auto) 4.4 % (0.0-7.0)
[2024-10-29 10:13] LABS: Basophils % (auto) 0.4 % (0.0-2.0); Hematocrit 27.7 % (36.0-46.0); Hemoglobin 9.4 g/dL (12.2-16.2); Lymphocytes # (auto) 0.8 10 ^3/uL (0.4-5.4); Lymphocytes % (auto) 16.8 % (10.0-50.0); Mean Corpuscular Hemoglobin 24.5 pg (28.0-32.0); Mean Corpuscular Hgb Conc. 33.9 g/dL (32.0-36.0); Mean Corpuscular Volume 72.3 fL (80.0-100.0); Monocytes # (auto) 0.5 10 ^3/uL (0-1.3); Monocytes % (auto) 9.1 % (0.0-12.0); Neutrophils # (auto) 3.5 10 ^3/uL (1.6-8.6); Neutrophils % (auto) 69.3 % (37.0-80.0); Nucleated Red Blood Cells % 0.2 %; Platelet Count (auto) 238 10^3/uL (140-450); Red Blood Cells 3.82 10^6/uL (4.0-5.20); Red Cell Distribution Width 16.4 % (11.8-14.3)
[2024-10-29 10:35] LABS: Albumin 3.3 g/dL (3.2-4.8); Alkaline Phosphatase 89 U/L (46-116); Anion Gap 7 (5-15); Aspartate Aminotransferase 16 U/L (13-40); Blood Urea Nitrogen 12 mg/dL (9-23); Calcium 8.7 mg/dL (8.7-10.4); Carbon Dioxide 28 mmol/L (20-31); Chloride 103 mmol/L (98-107); Glucose 91 mg/dL (74-106); Potassium 4.1 mmol/L (3.5-5.1); Sodium 138 mmol/L (136-145)
[2024-10-29 10:36] LABS: Alanine Aminotransferase < 9 U/L (7-40); Bilirubin, Total < 0.2 mg/dL (0.2-1.0); Total Protein 7.1 g/dL (5.7-8.2)
--- NOTE | 2024-10-29 12:50 | DVHPNRES ---
Progress Note Date Seen: Oct 28, 2024 Resident Creating Document: TONIE LEGGETT RESIDENT Has the PT tested + for MRSA If YES, has PT been informed?: No Medical Necessity Reason Pt with a Central, PICC or Fol: No Subjective Review of Systems Saw the patient at bedside, in moderate distress with complaints of acute chest pain, otherwise physical examination unchanged since yesterday Changes from previous H/P or p: No Changes Objective vital signs Vital Sign Date Time Temp Pulse Resp B/P (MAP) Pulse Ox O2 Delivery O2 Flow Rate FiO2 10/29/24 09:00 98.9 113 18 133/88 (103) 97 98.9 10/29/24 08:05 Room Air* 0 21 Total Intake and Output 10/28/24 10/28/24 10/29/24 15:00 23:00 07:00 Intake Total 520 ml 1026 ml 1280 ml Output Total 3100 ml 1400 ml Balance 520 ml -2074 ml -120 ml medications Current Medications Medications Dose Ordered Sig/Tiara Route Start Time Stop Time Status Last Admin Dose Admin Ceftriaxone Sodium 50 ml @ 100 mls/hr DAILY IV 10/26/24 10:00 10/29/24 09:20 100 MLS/HR Insulin Glargine 15 units QAM SC 10/26/24 07:00 10/28/24 06:08 15 UNITS Diagnostic Test (Pha) 1 strip ACHS 10/26/24 07:00 10/29/24 11:54 1 STRIP Insulin Human Regular ACHS SC 10/26/24 07:00 10/29/24 06:01 3 UNITS Dextrose 50 ml UD PRN IV 10/26/24 01:45 Pantoprazole Sodium 40 mg DAILY@0600 PO 10/26/24 06:00 10/29/24 05:51 40 MG Enteral Nutritional Formula 240 ml TIDWM PO 10/26/24 12:00 10/29/24 08:28 240 ML Acetaminophen 650 mg Q4HP PRN PO 10/26/24 17:30 10/28/24 20:55 650 MG Ondansetron HCl 4 mg Q4HPRN PRN IV 10/26/24 17:30 10/29/24 11:48 4 MG Clonidine HCl 0.1 mg Q8HP PRN PO 10/26/24 18:00 Sodium Chloride 1,000 ml @ 100 mls/hr Q10H IV 10/27/24 07:15 10/29/24 09:20 100 MLS/HR Ergocalciferol 50,000 unit Q7D PO 10/27/24 09:30 10/27/24 09:30 50,000 UNIT Docusate Sodium 200 mg BID PO 10/27/24 22:00 10/29/24 09:18 200 MG Acetaminophen/ Hydrocodone Bitart 1 tab Q4HPRN PRN PO 10/27/24 10:45 10/29/24 11:51 1 TAB Morphine Sulfate 1 mg Q3HP PRN IV 10/28/24 11:15 10/28/24 17:53 1 MG Nitroglycerin 0.4 mg Q5MINP PRN SL 10/28/24 12:15 10/28/24 17:26 0.4 MG Examination General Appearance: Alert, Oriented X3, Cooperative, cachectic looking severe sick HEENT: Atraumatic, PERRLA, EOMI, Mucous membrane moist/pink Respiratory: Clear to auscultation, Normal air movement Cardiovascular: Regular rate, Normal S1, Normal S2, No murmurs, positive chest wall tenderness parasternal area bilaterally in between 2-8 ribs reproducible Abdominal: Abdomen was distended, with suprapubic tenderness Extremities: No clubbing, No cyanosis, No edema, Normal pulses, No tenderness/swelling Skin: No rashes, No breakdown, No significant lesion Neuro: Normal gait, Normal speech, Strength at 5/5 X4 ext, Normal tone, Sensation intact, Cranial nerves 3-12 NL, Reflexes 2+ Psych/Mental Status: Mental status NL, Mood NL laboratory and microbiology Laboratory Tests 10/29/24 08:48 Test 10/29/24 08:48 Range/Units Serum Glucose 91 74-106 mg/dL Microbiology Date/Time Source Procedure Growth Status 10/25/24 19:54 Voided Urine Urine Culture - Final Complete Labs and/or images reviewed: Labs reviewed by me, Image(s) reviewed by me Problem List/Assessment/Plan Problem List/Assessment/Plan Hospitalization summary/ Assessment: A 34-year-old female with type 1 diabetes mellitus and sickle cell trait presented to the ED with a chief complaint of no bowel movement since August 2024, right-sided abdominal pain, low-grade fever, night sweats, weight loss, nighttime incontinence, and amenorrhea since May 2024. She denies nausea, vomiting, hemoptysis, hematemesis, chest pain, shortness of breath, and dizziness. Her past medical history includes diabetes and sickle cell trait, with three C-sections. She has a family history of diabetes and lupus and is allergic to siena flavor. She was seen at the bedside, still complaining of abdominal pain and generalized weakness. Plan: # likely bladder neoplasm: Waiting for urology input for biopsy and further follow up with hemato oncology/Dr. Richard # cachexia likely due to above: Significant weight loss in last 1 year. # severe malnutrition BMI is less than 75% of ideal body weight: Dietary consult, ensure high-protein # moderate bilateral hydronephrosis: Evident on CT, abdominal examination remarkable with globular distention of bladder and pain in the CVA angle. Urology on board status post cystoscopy and transurethral catheter. Further evaluation needed for need of stent placement. # CHANDRIKA likely due to VMN, could be due to postobstructive pathophysiology # urinary tract infection likely complicated: Positive UA, IV empiric antibiotic with ceftriaxone to continue urine culture and blood culture to continue. # sickle cell trait: Moderate anemia have hypochromic microcytic, monitoring, blood transfusion threshold 7 # diabetes mellitus type 1: Uncontrolled: HbA1c 13.4, diabetic counseling education and continue SSI # electrolyte disturbances: Hyponatremia hypokalemia corrected. # euthyroid sick syndrome: Recheck TSH in 6 weeks post recovery of acute disease. # likely costochondritis: Acute chest pain parasternal area EKG negative, troponin negative, chest x-ray negative, local tenderness reproducible, not associated with breathing or positional change. As needed Tylenol/ibuprofen/local lidocaine patch on chest. Diet: Diabetic diet with ensure high-protein /diabetic continue GI prophylaxis: protonix 40mg/continue DVT prophylaxis: SCDs/high-risk of DVT given likely underlying active cancer Bowel regimen: Colace 100 mg b.i.d. Barriers to discharge: Medical diagnosis and managment in progress. Patient lives by herself and sibling. Does not have means of transport. Patient needs robust outpatient follow up with hemato oncology and early initiation of treatment Code status: Full code, discussion needed total 27 minutes. Patient care and plan discussed with Dr. Beaver Disposition: Patient remains in med surge. Plan discussed with: Patient, Other (Primary team, RN.) Dietary Evaluation Review Comments: Encourage high fiber foods and more fluids. offer prune juice TID and cooked vegetable and or fresh fruits with each meals. ensure high protein 240ml BID. Expected Outcomes/Goals: Having regular BMs, increased PO intake and having weight gains. Date of Service: Oct 28, 2024 Billing Provider: GLO LOPEZ MD Common Visit Codes: [id number] INP/OBS CARE(HIGH) TONIE LEGGETT RESIDENT Oct 29, 2024 12:50 GLO LOPEZ MD Oct 30, 2024 21:14
--- NOTE | 2024-10-29 14:27 | DVH ---
INDICATION: Hydronephrosis TECHNIQUE: Multiple ultrasound images of the kidneys and bladder were obtained. COMPARISON: US KIDNEY on DOS: 10/26/24, US KIDNEY on DOS: 10/26/24 FINDINGS: The right kidney measures 11.3 cm in length. The left kidney measures 11.6 cm. There is moderate bila teral renal hydronephrosis. There is no sonographic evidence of nephrolithiasis. There is a Johnson catheter in the bladder which is decompressed. IMPRESSION: 1. Moderate bilateral renal hydronephrosis. 2. There is Johnson catheter in the bladder which is decompressed.
--- NOTE | 2024-10-29 18:43 | DVHPNRES ---
Progress Note Date Seen: Oct 29, 2024 Resident Creating Document: WILBER WALKER MAC Has the PT tested + for MRSA If YES, has PT been informed?: No Medical Necessity Reason Pt with a Central, PICC or Fol: No Subjective Review of Systems A 34-year-old female with a history of type 1 diabetes mellitus and sickle cell trait presented to the ED with a chief complaint of not having a bowel movement since August 2024. She also reported right-sided abdominal pain, including the right subcostal, hypochondriac, and right lumbar regions, but mentioned passing flatus. She normally has a bowel movement every other week since childhood. Additionally, she reported low-grade fever, night sweats, a 10 lb weight loss over four months, and nighttime incontinence requiring diaper use for the past month. She also complained of amenorrhea since May 2024 and is not using any control, with her last child born in 2018 via . She denies nausea, vomiting, hemoptysis, hematemesis, chest pain, shortness of breath, and dizziness. PMHx: Diabetes mellitus type 1, sickle cell trait PSHx: 3 C section Family history: Diabetes type 1, lupus Allergic history: [place] flavor Today, patient seen and examined at the bedside. Patient was still complaining of abdominal pain and generalized weakness. Patient reports: No new complaints Changes from previous H/P or p: No Changes Objective vital signs Vital Sign Date Time Temp Pulse Resp B/P (MAP) Pulse Ox O2 Delivery O2 Flow Rate FiO2 10/29/24 17:00 97.9 111 18 121/68 (85) 98 97.9 10/29/24 08:05 Room Air* 0 21 Total Intake and Output 10/28/24 10/28/24 10/29/24 15:00 23:00 07:00 Intake Total 520 ml 1026 ml 1280 ml Output Total 3100 ml 1400 ml Balance 520 ml -2074 ml -120 ml medications Current Medications Medications Dose Ordered Sig/Tiara Route Start Time Stop Time Status Last Admin Dose Admin Ceftriaxone Sodium 50 ml @ 100 mls/hr DAILY IV 10/26/24 10:00 10/29/24 09:20 100 MLS/HR Insulin Glargine 15 units QAM SC 10/26/24 07:00 10/28/24 06:08 15 UNITS Diagnostic Test (Pha) 1 strip ACHS 10/26/24 07:00 10/29/24 17:00 1 STRIP Insulin Human Regular ACHS SC 10/26/24 07:00 10/29/24 17:00 2 UNITS Dextrose 50 ml UD PRN IV 10/26/24 01:45 Pantoprazole Sodium 40 mg DAILY@0600 PO 10/26/24 06:00 10/29/24 05:51 40 MG Acetaminophen 650 mg Q4HP PRN PO 10/26/24 17:30 10/28/24 20:55 650 MG Ondansetron HCl 4 mg Q4HPRN PRN IV 10/26/24 17:30 10/29/24 11:48 4 MG Clonidine HCl 0.1 mg Q8HP PRN PO 10/26/24 18:00 Sodium Chloride 1,000 ml @ 100 mls/hr Q10H IV 10/27/24 07:15 10/29/24 09:20 100 MLS/HR Ergocalciferol 50,000 unit Q7D PO 10/27/24 09:30 10/27/24 09:30 50,000 UNIT Docusate Sodium 200 mg BID PO 10/27/24 22:00 10/29/24 09:18 200 MG Acetaminophen/ Hydrocodone Bitart 1 tab Q4HPRN PRN PO 10/27/24 10:45 10/29/24 11:51 1 TAB Morphine Sulfate 1 mg Q3HP PRN IV 10/28/24 11:15 10/28/24 17:53 1 MG Nitroglycerin 0.4 mg Q5MINP PRN SL 10/28/24 12:15 10/28/24 17:26 0.4 MG Lidocaine 1 patch DAILY TOP 10/30/24 10:00 Enteral Nutritional Formula 240 ml TIDWM PO 10/29/24 18:00 Examination General Appearance: Alert, Oriented X3, Cooperative, cachectic looking severe sick HEENT: Atraumatic, PERRLA, EOMI, Mucous membrane moist/pink Respiratory: Clear to auscultation, Normal air movement Cardiovascular: Regular rate, Normal S1, Normal S2, No murmurs, no chest wall tenderness Abdominal: Abdomen was distended, with suprapubic tenderness Extremities: No clubbing, No cyanosis, No edema, Normal pulses, No tenderness/swelling Skin: No rashes, No breakdown, No significant lesion Neuro: Normal gait, Normal speech, Strength at 5/5 X4 ext, Normal tone, Sensation intact, Cranial nerves 3-12 NL, Reflexes 2+ Psych/Mental Status: Mental status NL, Mood NL laboratory and microbiology Laboratory Tests 10/29/24 08:48 Test 10/29/24 08:48 Range/Units Serum Glucose 91 74-106 mg/dL Microbiology Date/Time Source Procedure Growth Status 10/25/24 19:54 Voided Urine Urine Culture - Final Complete Labs and/or images reviewed: Labs reviewed by me, Image(s) reviewed by me Problem List/Assessment/Plan Problem List/Assessment/Plan Chachexia, 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 lantus and aggressive SS Mild hyponatremia, monitoring Hypokalemia, repleted Possible Euthyroid sick syndrome TSH is decresed, free T4 is normal DIET: Diabetic diet wit Ensure high protein DVT PROPHYLAXIS: SCDs GI PROPHYLAXIS:: Protonix BOWEL REGIMEN: COlace 100mg BID CODE STATUS: Goal of Care discussed for more than 23 min, full code DISPOSITION: Med/Surg Patient's status discussed with the patient. Case discussed with Dr. Beaver Plan discussed with: Patient, Other (RN) My Orders My Orders Orders - WILBER WALKER RESDIJAHAIRA Procedure Category Date Status Time Kidney US 10/29/24 Resulted 13:25 Nutritional PHA 10/29/24 In Process Supplements (Glucerna 18:00 Dietary Evaluation Review Comments: Encourage high fiber foods and more fluids. offer prune juice TID and cooked vegetable and or fresh fruits with each meals. ensure high protein 240ml BID. Expected Outcomes/Goals: Having regular BMs, increased PO intake and having weight gains. Date of Service: Oct 29, 2024 Billing Provider: GLO LOPEZ MD Common Visit Codes: [id number] INP/OBS CARE(HIGH) WILBER WALKER RESDIENT Oct 29, 2024 18:43 GLO LOPEZ MD Oct 30, 2024 21:20
[2024-10-29] MEDS: Glucerna Carbsteady SHAKE Vanilla 8oz PO SCH (18:55)
[2024-10-30] VITALS (7 sets, daily range): BP systolic 92–113; BP diastolic 58–78; PULSE 91–105; RESP 17–19; TEMP 98.2–100; O2SAT 93–100
[2024-10-30 08:02] LABS: Basophils # (auto) 0 10 ^3/uL (0-0.2); Basophils % (auto) 0.7 % (0.0-2.0); Eosinophils # (auto) 0.2 10 ^3/uL (0-0.8); Eosinophils % (auto) 4.9 % (0.0-7.0); Hematocrit 27.7 % (36.0-46.0); Hemoglobin 9.1 g/dL (12.2-16.2); Lymphocytes # (auto) 1.1 10 ^3/uL (0.4-5.4); Lymphocytes % (auto) 30.7 % (10.0-50.0); Mean Corpuscular Hemoglobin 23.7 pg (28.0-32.0); Mean Corpuscular Hgb Conc. 32.8 g/dL (32.0-36.0); Monocytes # (auto) 0.4 10 ^3/uL (0-1.3); Monocytes % (auto) 11.4 % (0.0-12.0); Neutrophils # (auto) 1.9 10 ^3/uL (1.6-8.6); Neutrophils % (auto) 52.3 % (37.0-80.0); Nucleated Red Blood Cells % 0.2 %; Platelet Count (auto) 237 10^3/uL (140-450); Red Blood Cells 3.84 10^6/uL (4.0-5.20); Red Cell Distribution Width 16.6 % (11.8-14.3); White Blood Cell 3.6 10^3/uL (4.4-10.8)
[2024-10-30 08:24] LABS: Albumin 3.2 g/dL (3.2-4.8); Alkaline Phosphatase 88 U/L (46-116); Anion Gap 7 (5-15); Aspartate Aminotransferase 19 U/L (13-40); BUN/Creatinine Ratio 14.4 (10.0-20.0); Blood Urea Nitrogen 13 mg/dL (9-23); Carbon Dioxide 27 mmol/L (20-31); Chloride 100 mmol/L (98-107); Potassium 4.2 mmol/L (3.5-5.1)
[2024-10-30 08:25] LABS: Alanine Aminotransferase < 9 U/L (7-40); Bilirubin, Total < 0.2 mg/dL (0.2-1.0); Calcium 8.4 mg/dL (8.7-10.4); Glucose 169 mg/dL (74-106); Sodium 134 mmol/L (136-145); Total Protein 6.8 g/dL (5.7-8.2)
--- NOTE | 2024-10-30 08:35 | DVHPNRES ---
Progress Note Has the PT tested + for MRSA If YES, has PT been informed?: No Medical Necessity Reason Pt with a Central, PICC or Fol: No Objective vital signs Vital Sign Date Time Temp Pulse Resp B/P (MAP) Pulse Ox O2 Delivery O2 Flow Rate FiO2 10/30/24 05:00 98.9 102 18 113/78 (90) 93 98.9 10/29/24 20:00 Room Air* 0 21 Total Intake and Output 10/29/24 10/29/24 10/30/24 15:00 23:00 07:00 Intake Total 1250 ml 800 ml 1000 ml Output Total 3600 ml 1250 ml Balance 1250 ml -2800 ml -250 ml medications Current Medications Medications Dose Ordered Sig/Tiara Route Start Time Stop Time Status Last Admin Dose Admin Ceftriaxone Sodium 50 ml @ 100 mls/hr DAILY IV 10/26/24 10:00 10/29/24 09:20 100 MLS/HR Insulin Glargine 15 units QAM SC 10/26/24 07:00 10/30/24 06:51 15 UNITS Diagnostic Test (Pha) 1 strip ACHS 10/26/24 07:00 10/30/24 06:51 1 STRIP Insulin Human Regular ACHS SC 10/26/24 07:00 10/30/24 06:51 3 UNITS Dextrose 50 ml UD PRN IV 10/26/24 01:45 Pantoprazole Sodium 40 mg DAILY@0600 PO 10/26/24 06:00 10/30/24 06:00 40 MG Acetaminophen 650 mg Q4HP PRN PO 10/26/24 17:30 10/29/24 20:24 650 MG Ondansetron HCl 4 mg Q4HPRN PRN IV 10/26/24 17:30 10/29/24 11:48 4 MG Clonidine HCl 0.1 mg Q8HP PRN PO 10/26/24 18:00 Sodium Chloride 1,000 ml @ 100 mls/hr Q10H IV 10/27/24 07:15 10/30/24 05:15 100 MLS/HR Ergocalciferol 50,000 unit Q7D PO 10/27/24 09:30 10/27/24 09:30 50,000 UNIT Docusate Sodium 200 mg BID PO 10/27/24 22:00 10/29/24 20:24 200 MG Acetaminophen/ Hydrocodone Bitart 1 tab Q4HPRN PRN PO 10/27/24 10:45 10/29/24 11:51 1 TAB Morphine Sulfate 1 mg Q3HP PRN IV 10/28/24 11:15 10/28/24 17:53 1 MG Nitroglycerin 0.4 mg Q5MINP PRN SL 10/28/24 12:15 10/28/24 17:26 0.4 MG Lidocaine 1 patch DAILY TOP 10/30/24 10:00 Enteral Nutritional Formula 240 ml TIDWM PO 10/29/24 18:00 10/29/24 18:55 240 ML Polyethylene Glycol 17 gm DAILY PO 10/30/24 10:00 laboratory and microbiology Laboratory Tests 10/30/24 06:59 Test 10/30/24 06:59 Range/Units Serum Glucose 169 H 74-106 mg/dL Microbiology Date/Time Source Procedure Growth Status 10/25/24 19:54 Voided Urine Urine Culture - Final Complete My Orders My Orders Orders - GARY DON RESIDENT Procedure Category Date Status Time Polyethylene Glycol PHA 10/30/24 In Process 17g Powder (Miralax 10:00 Dietary Evaluation Review Comments: Encourage high fiber foods and more fluids. offer prune juice TID and cooked vegetable and or fresh fruits with each meals. ensure high protein 240ml BID. Expected Outcomes/Goals: Having regular BMs, increased PO intake and having weight gains. GARY DON RESIDENT Oct 30, 2024 08:35
--- NOTE | 2024-10-30 08:50 | DVHINCON2 ---
Date of service: Oct 30, 2024 Referring Physician Gaye Gomez Reason for Consultation Bladder wall thickening History of Present Illness 34 years old black female who gives a history of sickle cell trait and has been asymptomatic . Does give a history of blood transfusion in 2019 with her . Now she is admitted with abdominal pain with no nausea vomiting. Had some fevers. Did not have a bowel movement since September 06, 2024. The patient had some bowel movement this morning. She still complains of some discomfort in the right abdomen. And had some fevers still. CT abdomen pelvis with contrast showed diffuse bladder wall thickening with more focal thickening at the superior margin could represent bladder mass. Moderate bilateral hydronephrosis. Renal ultrasound showed moderate bilateral renal hydronephrosis. Patient had a bladder evaluation by Dr. Mirza with cystoscope and Johnson insertion. And he described a distended bladder with over 650 cc of urine evacuated. Ureteric orifice appeared to be in normal position bilaterally. Given the findings of distended bladder no ureteral catheter she had for retrograde studies was done. Johnson catheter was placed. There is no mention of any bladder findings of any mass or thickening Repeat renal ultrasound on 10/29/2024 showed moderate bilateral renal hydronephrosis. There is a Johnson catheter in the bladder which is decompressed Chest x-ray was unremarkable CBC showed a white count of 3.6 hemoglobin 9.1 MCV 72 platelets 237 and iron studies were consistent with iron deficiency B12 1082 albumin 3.2 total protein 6.8 normal liver functions and renal functions urinalysis showed 3+ leukocyte esterase many bacteria No complaints of weight loss. No headaches. She always has been constipated and moves her bowels once a week or every other week but this last time she had last bowel movement in August and had some bowel movement this morning Past Medical History Sickle cell trait asymptomatic History of three C sections and had PRBC in 2019 during type 1 d iabetes mellitus Family History: FH: type 1 diabetes G8 MOTHER FHx: kidney disease G8 MOTHER Patient's mother is G8 MOTHER Family History Father and sister had sickle cell trait Social History No smoking drinking no drugs. Patient has four children in good health without any sickle cell traits Allergies: Coded Allergies: Jose Flavor (Verified Allergy, Severe, 06/25/24) itching in the tongue with fresh mangoes per patient Home Meds Active Scripts Cephalexin Monohydrate (Cephalexin) 500 Mg Cap, 1 CAP PO TID, #15 CAP Prov:ROSETTA BROWN MD 06/27/24 Insulin Lispro (Human) (Humalog) 100 Unit/Ml Inj, 7 UNIT SC TIDWM, #1000 UNITS Prov:ROSETTA BROWN MD 06/27/24 Insulin Glargine (Lantus) 100 Unit/Ml Inj, 15 UNIT SC DAILY, #1000 INJ Prov:ROSETTA BROWN MD 06/26/24 Blood Glucose Monitoring Suppl (Freestyle Lite Blood Gluc) 1 Mis Mis, MIS XX, #1 Prov:ROSETTA BROWN MD 06/26/24 Reported Medications Acetaminophen (Acetaminophen) 325 Mg Tab, 500 MG PO DAILY PRN for PAIN SCALE 1 THRU 6 for 30 Days, MG 0 Refills 06/25/24 Insulin Lispro (Human) (Humalog) 100 Unit/Ml Inj, 4 UNIT SC AC, INJ 06/25/24 Insulin Glargine (Lantus) 100 Unit/Ml Inj, 18 UNIT SC HS, INJ 06/25/24 Current Medications Current Medications Medications (Trade) Dose Ordered Sig/Tiara Route PRN Reason Start Time Stop Time Status Last Admin Lidocaine (Lidoderm 5% Topical Patch) 1 patch DAILY TOP 10/30/24 10:00 Enteral Nutritional Formula (Glucerna Carbsteady SHAKE) 240 ml TIDWM PO 10/29/24 18:00 10/29/24 18:55 Polyethylene Glycol (Miralax 17GM Powder) 17 gm DAILY PO 10/30/24 10:00 Vital Signs Vital Signs Date Time Temp Pulse Resp B/P (MAP) Pulse Ox O2 Delivery O2 Flow Rate FiO2 10/30/24 05:00 98.9 102 18 113/78 (90) 93 98.9 10/29/24 20:00 Room Air* 0 21 Physical Exam Moderately built and nourished, in no acute distress, alert and oriented. No jaundice Head and neck: Unremarkable for any masses or neck nodes. No conjunctival or mucosal hemorrhage Lungs: Clear Cardiovascular: S1-S2 heard well Abdomen: No organomegaly, tenderness or ascites. Bowel sounds are present. Slightly sensitive to touch in the right midabdomen Extremities: No clubbing edema cyanosis or calf tenderness. Skin: Unremarkable for petechia purpura ecchymosis Lymphadenopathy: None Neurological exam: No focal deficit Labs/Diagnostic Data Labs Test 10/30/24 06:59 10/30/24 06:38 10/27/24 07:04 10/26/24 17:48 Range/Units White Blood Count 3.6 #L 4.4-10.8 10^3/uL Red Blood Count 3.84 L 4.0-5.20 10^6/uL Hemoglobin 9.1 L 12.2-16.2 g/dL Hematocrit 27.7 L 36.0-46.0 % Mean Corpuscular Volume 72.0 L 80.0-100.0 fL Mean Corpuscular Hemoglobin 23.7 L 28.0-32.0 pg Mean Corpuscular Hemoglobin Concent 32.8 32.0-36.0 g/dL Red Cell Distribution Width 16.6 H 11.8-14.3 % Platelet Count 237 140-450 10^3/uL Mean Platelet Volume 8.6 6.9-10.8 fL Neutrophils (%) (Auto) 52.3 37.0-80.0 % Lymphocytes (%) (Auto) 30.7 10.0-50.0 % Monocytes (%) (Auto) 11.4 0.0-12.0 % Eosinophils (%) (Auto) 4.9 0.0-7.0 % Basophils (%) (Auto) 0.7 0.0-2.0 % Neutrophils # (Auto) 1.9 1.6-8.6 10 ^3/uL Lymphocytes # (Auto) 1.1 0.4-5.4 10 ^3/uL Monocytes # (Auto) 0.4 0-1.3 10 ^3/uL Eosinophils # (Auto) 0.2 0-0.8 10 ^3/uL Basophils # (Auto) 0 0-0.2 10 ^3/uL Nucleated Red Blood Cells 0.2 % Sodium Level 134 L 136-145 mmol/L Potassium Level 4.2 3.5-5.1 mmol/L Chloride Level 100 98-107 mmol/L Carbon Dioxide Level 27 20-31 mmol/L Anion Gap 7 5-15 Blood Urea Nitrogen 13 9-23 mg/dL Creatinine 0.90 0.550-1.02 mg/dL Glomerular Filtration Rate Calc 87 >90 mL/min BUN/Creatinine Ratio 14.4 10.0-20.0 Serum Glucose 169 H 74-106 mg/dL Calcium Level 8.4 L 8.7-10.4 mg/dL Total Bilirubin < 0.2 L 0.2-1.0 mg/dL Aspartate Amino Transferase (AST) 19 13-40 U/L Alanine Aminotransferase (ALT) < 9 7-40 U/L Alkaline Phosphatase 88 46-116 U/L Total Protein 6.8 5.7-8.2 g/dL Albumin 3.2 3.2-4.8 g/dL POC Glucose 166 H 70-106 mg/dl Vitamin B12 Level 1082 H 211-911 pg/mL Vitamin D 25-Hydroxy 13.4 L 30.0-100 ng/mL Thyroid Stimulating Hormone (TSH) 0.51 L 0.55-4.78 uIU/mL Total Estradiol 23.8 . pg/mL Follicle Stimulating Hormone 2.63 SEE BELOW IU/L Luteinizing Hormone 2.5 IU/L Prolactin 5.93 2.8-29.2 ng/mL Beta HCG, Quantitative 0.6 L 1.5-4.2 mIU/mL Test 10/26/24 05:38 10/25/24 20:20 10/25/24 19:54 Range/Units Iron Level 16 L 50-170 ug/dL Total Iron Binding Capacity 233 L 250-425 ug/dL Percent Iron Saturation 6.9 L 15-50 % Ferritin 51.7 10-291 ng/mL Hemoglobin A1c 13.4 H <5.7 % A1C Lactic Acid Level 1.3 0.4-2.0 mmol/L Troponin I High Sensitivity < 3 L </=34 ng/L Lipase 44 12-53 U/L Free Thyroxine (T4) Calculated 1.22 0.89-1.76 ng/dL Urine Color Colorless Yellow Urine Clarity Turbid H Clear Urine pH 6.0 5.0-9.0 Urine Specific [place] 1.003 1.001-1.035 Urine Protein 1+ H Negative Urine Ketones Negative Negative Urine Blood 1+ H Negative /uL Urine Nitrite Negative Negative Urine Bilirubin Negative Negative Urine Urobilinogen Normal Negative mg/dL Urine Leukocyte Esterase 3+ Negative /uL Urine RBC 23 0 - 4 /hpf Urine WBC 216 0 - 5 /hpf Urine Squamous Epithelial Cells Few <5 /hpf Urine Amorphous Crystals Few None Seen /hpf Urine Bacteria Many H None Seen /hpf Urine Glucose 4+ H Normal mg/dL Urine Test Negative Negative Urine Opiates Screen Neg NEGATIVE Urine Fentanyl Screen Neg NEGATIVE Urine Barbiturates Screen Neg NEGATIVE Urine Phencyclidine Screen Neg NEGATIVE Urine Amphetamines Screen Neg NEGATIVE Urine Benzodiazepines Screen Neg NEGATIVE Urine Cocaine Screen Neg NEGATIVE Urine Cannabinoids Screen Neg NEGATIVE Microbiology Date/Time Source Procedure Growth Status 10/25/24 19:54 Voided Urine Urine Culture - Final Complete Assessment 1. Bladder wall thickening being evaluated by the Urology and patient has UTI and being treated with the antibiotics and has bilateral hydronephrosis and even with the decompression of the bladder still has hydronephrosis 2. Sickle cell trait 3. Iron deficiency anemia 4. Type 1 diabetes mellitus 5. Amenorrhea Plan/Recommendation After a confirmation of any bladder malignancy the patient could be consulted by me again Management of bilateral hydronephrosis by the Urology Iron replacement The patient is advised to come see me in the office after discharge For pains in the right abdomen and history of severe constipation the patient should get a GI evaluation for possible colonoscope Plan discussed with: Patient MELANY RAMOS MD Oct 30, 2024 08:50
[2024-10-30] MEDS: FERROUS SULFATE 325mg EC TAB PO SCH (10:24)
[2024-10-30] MEDS: POLYETHYLENE GLYCOL 17 GM PWDR PO SCH (10:24)
--- NOTE | 2024-10-30 10:46 | ECG ---
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
[2024-10-30] MEDS: FUROSEMIDE 40 MG/4 ML VIAL IV ONE (12:00)
[2024-10-30] MEDS: LIDOCAINE 5% TOPICAL PATCH TOP SCH (12:26)
--- NOTE | 2024-10-30 15:36 | DVH ---
EXAM: NM NM MAG3 RENAL SCAN DATE OF SERVICE: 10/30/2024 01:50 PM ORDERING PHYSICIAN: WILBER WALKER REASON FOR EXAM: persistent hydronephrosis TECHNIQUE: During the injection of radiopharmaceutical, posterior flow images of the kidneys were ac quired immediately at one frame per second for one minute, immediately followed by posterior imaging at 30 seconds per frame for 30 minutes. Approximately 20 minutes after the radiopharmaceutical admini stration, the indicated dose of lasix was administered. Regions of interest were drawn around the kid neys and time activity curves were generated. Differential function was calculated. COMPARISON: None FINDINGS: Blood flow images demonstrate prompt and symmetric flow to both kidneys with no focal defects. Functional images demonstrate a cortical transit time ([id number]) of 10.4 on the right and 9.4 on the left (normal is < 6 minutes). There is no adequate spontaneous excretion from the kidneys. Differential function (uptake %) is 51.6 % by the right kidney and 48.4 % by the left kidney. After Lasix administration, there was adequate and prompt excretion from both collecting systems. The post-Lasix half-emptying time (diuretic T1/2) was 6.5 minutes on the right and 3.5 minutes on the le ft, which is within normal limits. IMPRESSION: 1. Mildly delayed perfusion and time to peak of both kidneys with adequate response to lasix is sugge stive of functional obstructions. 2. Differential renal function (uptake percent) of 51.6 % by the right kidney and 48.4 % by the left.
--- NOTE | 2024-10-30 16:55 | ECG ---
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
--- NOTE | 2024-10-30 16:58 | DVHPN2 ---
Progress Note - Dictate Date Seen: Oct 30, 2024 Has the PT tested + for MRSA If YES, has PT been informed?: No Medical Necessity Reason Pt with a Central, PICC or Fol: Yes The following are medically ne: Diaz Catheter Reason for diaz catheter: Bladder Retention/Obstruc vital signs Vital Sign Date Time Temp Pulse Resp B/P (MAP) Pulse Ox O2 Delivery O2 Flow Rate FiO2 10/30/24 12:36 98.5 91 18 104/69 (81) 96 98.5 10/30/24 08:00 Room Air* 0 21 Total Intake and Output 10/29/24 10/29/24 10/30/24 15:00 23:00 07:00 Intake Total 1250 ml 800 ml 1000 ml Output Total 3600 ml 1250 ml Balance 1250 ml -2800 ml -250 ml medications Current Medications Medications Dose Ordered Sig/Tiara Route Start Time Stop Time Status Last Admin Dose Admin Ceftriaxone Sodium 50 ml @ 100 mls/hr DAILY IV 10/26/24 10:00 10/30/24 10:24 100 MLS/HR Insulin Glargine 15 units QAM SC 10/26/24 07:00 10/30/24 06:51 15 UNITS Diagnostic Test (Pha) 1 strip ACHS 10/26/24 07:00 10/30/24 16:11 1 STRIP Insulin Human Regular ACHS SC 10/26/24 07:00 10/30/24 12:26 4 UNITS Dextrose 50 ml UD PRN IV 10/26/24 01:45 Pantoprazole Sodium 40 mg DAILY@0600 PO 10/26/24 06:00 10/30/24 06:00 40 MG Acetaminophen 650 mg Q4HP PRN PO 10/26/24 17:30 10/29/24 20:24 650 MG Ondansetron HCl 4 mg Q4HPRN PRN IV 10/26/24 17:30 10/29/24 11:48 4 MG Clonidine HCl 0.1 mg Q8HP PRN PO 10/26/24 18:00 Sodium Chloride 1,000 ml @ 100 mls/hr Q10H IV 10/27/24 07:15 10/30/24 05:15 100 MLS/HR Ergocalciferol 50,000 unit Q7D PO 10/27/24 09:30 10/27/24 09:30 50,000 UNIT Docusate Sodium 200 mg BID PO 10/27/24 22:00 10/30/24 10:24 200 MG Acetaminophen/ Hydrocodone Bitart 1 tab Q4HPRN PRN PO 10/27/24 10:45 10/29/24 11:51 1 TAB Morphine Sulfate 1 mg Q3HP PRN IV 10/28/24 11:15 10/28/24 17:53 1 MG Nitroglycerin 0.4 mg Q5MINP PRN SL 10/28/24 12:15 10/28/24 17:26 0.4 MG Lidocaine 1 patch DAILY TOP 10/30/24 10:00 10/30/24 12:26 1 PATCH Enteral Nutritional Formula 240 ml TIDWM PO 10/29/24 18:00 10/30/24 16:52 240 ML Polyethylene Glycol 17 gm DAILY PO 10/30/24 10:00 10/30/24 10:24 17 GM Ferrous Sulfate 325 mg DAILY PO 10/30/24 10:00 10/30/24 10:24 325 MG laboratory and microbiology Laboratory Tests 10/30/24 06:59 Test 10/30/24 06:59 Range/Units Serum Glucose 169 H 74-106 mg/dL Assessment/Plan discharge with diaz catheter pt will need to learn how to intermittent catheterize for ongoing management. We will provide education during office visit at time of follow up. Problems(with codes): (1) Flaccid neurogenic bladder (2) Hydronephrosis (3) Abnormal finding on CT scan Dietary Evaluation Review Comments: Encourage high fiber foods and more fluids. offer prune juice TID and cooked vegetable and or fresh fruits with each meals. ensure high protein 240ml BID. Expected Outcomes/Goals: Having regular BMs, increased PO intake and having weight gains. Plan discussed with: CASANDRA Ayala NP Oct 30, 2024 16:58
--- NOTE | 2024-10-30 17:10 | DVHPNRES ---
Progress Note Date Seen: Oct 30, 2024 Resident Creating Document: GARY DON RESIDENT Has the PT tested + for MRSA If YES, has PT been informed?: No Medical Necessity Reason Pt with a Central, PICC or Fol: Yes The following are medically ne: Diaz Catheter Reason for diaz catheter: Bladder Retention/Obstruc Medical Necessity Reason A 34-year-old female with a history of type 1 diabetes mellitus and sickle cell trait presented to the ED with a chief complaint of not having a bowel movement since August 2024. She also reported right-sided abdominal pain, including the right subcostal, hypochondriac, and right lumbar regions, but mentioned passing flatus. She normally has a bowel movement every other week since childhood. Additionally, she reported low-grade fever, night sweats, a 10 lb weight loss over four months, and nighttime incontinence requiring diaper use for the past month. She also complained of amenorrhea since May 2024 and is not using any control, with her last child born in 2018 via . She denies nausea, vomiting, hemoptysis, hematemesis, chest pain, shortness of breath, and dizziness. PMHx: Diabetes mellitus type 1, sickle cell trait PSHx: 3 C section Family history: Diabetes type 1, lupus Allergic history: Jose flavor Today, patient seen and examined at the bedside. Patient was still complaining of abdominal pain and generalized weakness. Patient reports: No new complaints Changes from previous H/P or p: No Changes Objective vital signs Vital Sign Date Time Temp Pulse Resp B/P (MAP) Pulse Ox O2 Delivery O2 Flow Rate FiO2 10/30/24 12:36 98.5 91 18 104/69 (81) 96 98.5 10/30/24 08:00 Room Air* 0 21 Total Intake and Output 10/29/24 10/29/24 10/30/24 15:00 23:00 07:00 Intake Total 1250 ml 800 ml 1000 ml Output Total 3600 ml 1250 ml Balance 1250 ml -2800 ml -250 ml medications Current Medications Medications Dose Ordered Sig/Tiara Route Start Time Stop Time Status Last Admin Dose Admin Ceftriaxone Sodium 50 ml @ 100 mls/hr DAILY IV 10/26/24 10:00 10/30/24 10:24 100 MLS/HR Insulin Glargine 15 units QAM SC 10/26/24 07:00 10/30/24 06:51 15 UNITS Diagnostic Test (Pha) 1 strip ACHS 10/26/24 07:00 10/30/24 16:11 1 STRIP Insulin Human Regular ACHS SC 10/26/24 07:00 10/30/24 12:26 4 UNITS Dextrose 50 ml UD PRN IV 10/26/24 01:45 Pantoprazole Sodium 40 mg DAILY@0600 PO 10/26/24 06:00 10/30/24 06:00 40 MG Acetaminophen 650 mg Q4HP PRN PO 10/26/24 17:30 10/29/24 20:24 650 MG Ondansetron HCl 4 mg Q4HPRN PRN IV 10/26/24 17:30 10/29/24 11:48 4 MG Clonidine HCl 0.1 mg Q8HP PRN PO 10/26/24 18:00 Sodium Chloride 1,000 ml @ 100 mls/hr Q10H IV 10/27/24 07:15 10/30/24 05:15 100 MLS/HR Ergocalciferol 50,000 unit Q7D PO 10/27/24 09:30 10/27/24 09:30 50,000 UNIT Docusate Sodium 200 mg BID PO 10/27/24 22:00 10/30/24 10:24 200 MG Acetaminophen/ Hydrocodone Bitart 1 tab Q4HPRN PRN PO 10/27/24 10:45 10/29/24 11:51 1 TAB Morphine Sulfate 1 mg Q3HP PRN IV 10/28/24 11:15 10/28/24 17:53 1 MG Nitroglycerin 0.4 mg Q5MINP PRN SL 10/28/24 12:15 10/28/24 17:26 0.4 MG Lidocaine 1 patch DAILY TOP 10/30/24 10:00 10/30/24 12:26 1 PATCH Enteral Nutritional Formula 240 ml TIDWM PO 10/29/24 18:00 10/30/24 16:52 240 ML Polyethylene Glycol 17 gm DAILY PO 10/30/24 10:00 10/30/24 10:24 17 GM Ferrous Sulfate 325 mg DAILY PO 10/30/24 10:00 10/30/24 10:24 325 MG Examination General Appearance: Alert, Oriented X3, Cooperative, cachectic HEENT: Atraumatic, PERRLA, EOMI, Mucous membrane moist/pink Respiratory: Clear to auscultation, Normal air movement Cardiovascular: Regular rate, Normal S1, Normal S2, No murmurs, no chest wall tenderness Abdominal: Abdomen less distended, mild tenderness suprapubic Extremities: No clubbing, No cyanosis, No edema, Normal pulses, No tenderness/swelling Skin: No rashes, No breakdown, No significant lesion Neuro: Normal gait, Normal speech, Strength at 5/5 X4 ext, Normal tone, Sensation intact, Cranial nerves 3-12 NL, Reflexes 2+ Psych/Mental Status: Mental status NL, Mood NL laboratory and microbiology Laboratory Tests 10/30/24 06:59 Test 10/30/24 06:59 Range/Units Serum Glucose 169 H 74-106 mg/dL Microbiology Date/Time Source Procedure Growth Status 10/25/24 19:54 Voided Urine Urine Culture - Final Complete Problem List/Assessment/Plan Problem List/Assessment/Plan #Moderate bilateral functional renal hydronephrosis secondary to DM type 1 #Urinary retention resolved #bladder neoplasm: ruled out DM type 1, uncontrolled hba1c 13.4 #Severe Malnutrition, BMI is less than 75% ideal body weight #CHANDRIKA resolved due to functional hydronephrosis #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 Mildly delayed perfusion and time to peak of both kidneys with adequate response to lasix is suggestive of functional obstructions. 2. Differential renal function (uptake percent) of 51.6 % by the right kidney and 48.4 % by the left. Changes in the bladder probably are due to uncontrolled and long standing DM, per urology patient need to be DC with the diaz and intermittent catheterize for ongoing management. They will provide education during office visit at time of follow up. Neoplasm was ruled out Diabetic diet Keep ceftriaxone Insulin: increase Lantus 3 ui, keep mild slinding scale Keep fluids DIET: Diabetic diet wit Ensure high protein DVT PROPHYLAXIS: SCDs GI PROPHYLAXIS:: Protonix BOWEL REGIMEN: Miralax CODE STATUS: Goal of Care discussed for more than 23 min, full code DISPOSITION: Med/Surg, possible DC tomorrow Case discussed with Dr Santana Plan discussed with: Patient, Other (rn) My Orders My Orders Orders - GARY DON RESIDENT Procedure Category Date Status Time Polyethylene Glycol PHA 10/30/24 In Process 17g Powder (Miralax 10:00 Nm Mag3 Renal Scan NM 10/30/24 Resulted 09:20 Dietary Evaluation Review Comments: Encourage high fiber foods and more fluids. offer prune juice TID and cooked vegetable and or fresh fruits with each meals. ensure high protein 240ml BID. Expected Outcomes/Goals: Having regular BMs, increased PO intake and having weight gains. Date of Service: Oct 30, 2024 Billing Provider: JEANE SANTANA MD Common Visit Codes: [id number] INP/OBS CARE(HIGH) GARY DON RESIDENT Oct 30, 2024 17:10 JEANE SANTANA MD Oct 31, 2024 16:22
[2024-10-31 01:00] VITALS: BP 116/71; PULSE 95; RESP 18; TEMP 98.6; O2SAT 98
[2024-10-31 05:00] VITALS: BP 100/65; PULSE 90; RESP 19; TEMP 97.9; O2SAT 100
[2024-10-31] MEDS: INSULIN LANTUS (GLARGINE) 1 /0.01ml (100units/ml) SC SCH (06:41)
[2024-10-31 06:52] LABS: Basophils # (auto) 0 10 ^3/uL (0-0.2); Hemoglobin 8.3 g/dL (12.2-16.2); Monocytes # (auto) 0.4 10 ^3/uL (0-1.3); Neutrophils # (auto) 1.6 10 ^3/uL (1.6-8.6); Nucleated Red Blood Cells % 0.1 %; White Blood Cell 3.9 10^3/uL (4.4-10.8)
[2024-10-31 06:55] LABS: Basophils % (auto) 0.4 % (0.0-2.0); Eosinophils # (auto) 0.2 10 ^3/uL (0-0.8); Eosinophils % (auto) 6.3 % (0.0-7.0); Hematocrit 24.9 % (36.0-46.0); Lymphocytes # (auto) 1.7 10 ^3/uL (0.4-5.4); Lymphocytes % (auto) 42.3 % (10.0-50.0); Mean Corpuscular Hemoglobin 24.3 pg (28.0-32.0); Mean Corpuscular Hgb Conc. 33.4 g/dL (32.0-36.0); Mean Corpuscular Volume 72.7 fL (80.0-100.0); Monocytes % (auto) 10.1 % (0.0-12.0); Neutrophils % (auto) 40.9 % (37.0-80.0); Platelet Count (auto) 210 10^3/uL (140-450); Red Blood Cells 3.42 10^6/uL (4.0-5.20); Red Cell Distribution Width 16.7 % (11.8-14.3)
[2024-10-31 07:20] LABS: Alanine Aminotransferase 10 U/L (7-40); Alkaline Phosphatase 90 U/L (46-116); Anion Gap 6 (5-15); Aspartate Aminotransferase 23 U/L (13-40); BUN/Creatinine Ratio 18.8 (10.0-20.0); Blood Urea Nitrogen 21 mg/dL (9-23); Carbon Dioxide 27 mmol/L (20-31); Potassium 4.6 mmol/L (3.5-5.1)
[2024-10-31 07:22] LABS: Total Protein 6.3 g/dL (5.7-8.2)
[2024-10-31 07:23] LABS: Bilirubin, Total < 0.2 mg/dL (0.2-1.0); Calcium 8.4 mg/dL (8.7-10.4); Chloride 98 mmol/L (98-107); Glucose 285 mg/dL (74-106); Sodium 131 mmol/L (136-145)
[2024-10-31 08:51] VITALS: BP 112/76; PULSE 96; RESP 16; TEMP 97.9; O2SAT 100
[2024-10-31] MEDS ORDERED: ACET-1882 PO (11:14)
[2024-10-31] MEDS ORDERED: INSLANTI SC (11:14)
[2024-10-31 13:08] VITALS: BP 120/83; PULSE 104; RESP 17; TEMP 98.1; O2SAT 100
--- NOTE | 2024-10-31 13:13 | DVHDSRES ---
Discharge Summary Date of Admission Resident Creating Document: GARY DON RESIDENT Oct 25, 2024 at 23:20 Date of Discharge: Oct 31, 2024 Admitting Diagnosis moderate bilateral hydronephrosis Labs/Diagnostic Data: Laboratory Results Test 10/31/24 11:10 10/31/24 06:03 10/27/24 07:04 10/26/24 17:48 POC Glucose 140 mg/dl (70-106) White Blood Count 3.9 10^3/uL (4.4-10.8) Red Blood Count 3.42 10^6/uL (4.0-5.20) Hemoglobin 8.3 g/dL (12.2-16.2) Hematocrit 24.9 % (36.0-46.0) Mean Corpuscular Volume 72.7 fL (80.0-100.0) Mean Corpuscular Hemoglobin 24.3 pg (28.0-32.0) Mean Corpuscular Hemoglobin Concent 33.4 g/dL (32.0-36.0) Red Cell Distribution Width 16.7 % (11.8-14.3) Platelet Count 210 10^3/uL (140-450) Mean Platelet Volume 8.2 fL (6.9-10.8) Neutrophils (%) (Auto) 40.9 % (37.0-80.0) Lymphocytes (%) (Auto) 42.3 % (10.0-50.0) Monocytes (%) (Auto) 10.1 % (0.0-12.0) Eosinophils (%) (Auto) 6.3 % (0.0-7.0) Basophils (%) (Auto) 0.4 % (0.0-2.0) Neutrophils # (Auto) 1.6 10 ^3/uL (1.6-8.6) Lymphocytes # (Auto) 1.7 10 ^3/uL (0.4-5.4) Monocytes # (Auto) 0.4 10 ^3/uL (0-1.3) Eosinophils # (Auto) 0.2 10 ^3/uL (0-0.8) Basophils # (Auto) 0 10 ^3/uL (0-0.2) Nucleated Red Blood Cells 0.1 % Sodium Level 131 mmol/L (136-145) Potassium Level 4.6 mmol/L (3.5-5.1) Chloride Level 98 mmol/L (98-107) Carbon Dioxide Level 27 mmol/L (20-31) Anion Gap 6 (5-15) Blood Urea Nitrogen 21 mg/dL (9-23) Creatinine 1.12 mg/dL (0.550-1.02) Glomerular Filtration Rate Calc 67 mL/min (>90) BUN/Creatinine Ratio 18.8 (10.0-20.0) Serum Glucose 285 mg/dL (74-106) Calcium Level 8.4 mg/dL (8.7-10.4) Total Bilirubin < 0.2 mg/dL (0.2-1.0) Aspartate Amino Transferase (AST) 23 U/L (13-40) Alanine Aminotransferase (ALT) 10 U/L (7-40) Alkaline Phosphatase 90 U/L (46-116) Total Protein 6.3 g/dL (5.7-8.2) Albumin 3.0 g/dL (3.2-4.8) Vitamin B12 Level 1082 pg/mL (211-911) Vitamin D 25-Hydroxy 13.4 ng/mL (30.0-100) Thyroid Stimulating Hormone (TSH) 0.51 uIU/mL (0.55-4.78) Total Estradiol 23.8 pg/mL (.) Follicle Stimulating Hormone 2.63 IU/L (SEE BELOW) Luteinizing Hormone 2.5 IU/L Prolactin 5.93 ng/mL (2.8-29.2) Beta HCG, Quantitative 0.6 mIU/mL (1.5-4.2) Test 10/26/24 05:38 10/25/24 20:20 10/25/24 19:54 Iron Level 16 ug/dL (50-170) Total Iron Binding Capacity 233 ug/dL (250-425) Percent Iron Saturation 6.9 % (15-50) Ferritin 51.7 ng/mL (10-291) Hemoglobin A1c 13.4 % A1C (<5.7) Lactic Acid Level 1.3 mmol/L (0.4-2.0) Troponin I High Sensitivity < 3 ng/L (</=34) Lipase 44 U/L (12-53) Free Thyroxine (T4) Calculated 1.22 ng/dL (0.89-1.76) Urine Color Colorless (Yellow) Urine Clarity Turbid (Clear) Urine pH 6.0 (5.0-9.0) Urine Specific [place] 1.003 (1.001-1.035) Urine Protein 1+ (Negative) Urine Ketones Negative (Negative) Urine Blood 1+ /uL (Negative) Urine Nitrite Negative (Negative) Urine Bilirubin Negative (Negative) Urine Urobilinogen Normal mg/dL (Negative) Urine Leukocyte Esterase 3+ /uL (Negative) Urine RBC 23 /hpf (0 - 4) Urine WBC 216 /hpf (0 - 5) Urine Squamous Epithelial Cells Few /hpf (<5) Urine Amorphous Crystals Few /hpf (None Seen) Urine Bacteria Many /hpf (None Seen) Urine Glucose 4+ mg/dL (Normal) Urine Test Negative (Negative) Urine Opiates Screen Neg (NEGATIVE) Urine Fentanyl Screen Neg (NEGATIVE) Urine Barbiturates Screen Neg (NEGATIVE) Urine Phencyclidine Screen Neg (NEGATIVE) Urine Amphetamines Screen Neg (NEGATIVE) Urine Benzodiazepines Screen Neg (NEGATIVE) Urine Cocaine Screen Neg (NEGATIVE) Urine Cannabinoids Screen Neg (NEGATIVE) Other Laboratory Tests 10/31/24 06:03 Brief Hx & Hospital Course: A 34-year-old female with type 1 diabetes mellitus and sickle cell trait presented with abdominal pain, constipation since August 2024, and associated weight loss, fever, and night sweats. Her hospitalization revealed moderate bilateral hydronephrosis due to functional obstruction likely secondary to longstanding diabetes, requiring Johnson catheterization. Imaging, cystoscopy and lab work ruled out bladder neoplasm and indicated CHANDRIKA, which resolved with supportive care. Additionally, secondary amenorrhea was linked to hypothalamic dysfunction, and microcytic anemia was attributed to sickle cell trait. She had mild hyponatremia, which was also managed. The patient was started on ceftriaxone for presumed UTI (contaminated urine culture) and received insulin titration for uncontrolled diabetes (HbA1c 13.4). Nutritional support with a high-protein diabetic diet and bowel regimen for constipation was initiated. She achieved clinical stability and will follow up with urology for ongoing bladder management and endocrinology for diabetes care. Discharged with a plan for diabetic care, insulin adjustments, and a high- protein diet, she was advised on outpatient follow-ups. General Appearance: Alert, Oriented X3, Cooperative, cachectic HEENT: Atraumatic, PERRLA, EOMI, Mucous membrane moist/pink Respiratory: Clear to auscultation, Normal air movement Cardiovascular: Regular rate, Normal S1, Normal S2, No murmurs, no chest wall tenderness Abdominal: Abdomen less distended, mild tenderness suprapubic Extremities: No clubbing, No cyanosis, No edema, Normal pulses, No tenderness/swelling Skin: No rashes, No breakdown, No significant lesion Neuro: Normal gait, Normal speech, Strength at 5/5 X4 ext, Normal tone, Sensation intact, Cranial nerves 3-12 NL, Reflexes 2+ Psych/Mental Status: Mental status NL, Mood NL Case discussed with Dr Santana Consults/Reason for consult urology due to hydronephrosis hematology due to the suspicious of bladder neoplasm Operations or Procedures Report Details Date: 10/26/24 Preop Diagnosis: Bilateral hydronephrosis Distended bladder with possible bladder mass Overflow urinary incontinence Postop Diagnosis: Same Surgeon: Rohan Mirza Anesthesiologist: Elfego Anesthesia: General Consent: The patient was informed of the risks and benefits of the procedure. These include but are not limited to complications of anesthesia, postoperative infection, incomplete relief of symptoms, recurrence of symptoms, damage to blood vessels, nerves and tendons, deep venous thrombosis, pulmonary embolism and possible need for repeat surgery in the future. Indications for Surgery: Patient has urinary retention and bilateral hydronephrosis Name of Procedure Performed Cystoscopy with Johnson insertion Procedure Details Procedure Details: Patient was taken to the operating room and underwent general anesthesia. She was placed in the lithotomy position with the area of the genitalia prepped and draped in usual sterile manner. Twenty-one [place] rigid cystoscope was used to inspect the urethra in the bladder. Bladder was distended with over 650 cc of urine evacuated. Ureteric orifice appeared to be in normal position bilaterally. Given the findings of distended bladder, I elected not to place a ureteral catheter sheath for retrograde studies. We will leave the Johnson catheter to decompress the bladder and re-evaluate the kidneys with ultrasound to see if hydronephrosis are persistent. If hydronephrosis persists, we will consider the option of nephrostomy tube placements Specimen: None EXAM: NM NM MAG3 RENAL SCAN DATE OF SERVICE: 10/30/2024 01:50 PM ORDERING PHYSICIAN: WILBER WALKER REASON FOR EXAM: persistent hydronephrosis TECHNIQUE: During the injection of radiopharmaceutical, posterior flow images of the kidneys were acquired immediately at one frame per second for one minute, immediately followed by posterior imaging at 30 seconds per frame for 30 minutes. Approximately 20 minutes after the radiopharmaceutical administration, the indicated dose of lasix was administered. Regions of interest were drawn around the kidneys and time activity curves were generated. Differential function was calculated. COMPARISON: None FINDINGS: Blood flow images demonstrate prompt and symmetric flow to both kidneys with no focal defects. Functional images demonstrate a cortical transit time ([id number]) of 10.4 on the right and 9.4 on the left (normal is < 6 minutes). There is no adequate spontaneous excretion from the kidneys. Differential function (uptake %) is 51.6 % by the right kidney and 48.4 % by the left kidney. After Lasix administration, there was adequate and prompt excretion from both collecting systems. The post-Lasix half-emptying time (diuretic T1/2) was 6.5 minutes on the right and 3.5 minutes on the left, which is within normal limits. IMPRESSION: 1. Mildly delayed perfusion and time to peak of both kidneys with adequate response to lasix is suggestive of functional obstructions. 2. Differential renal function (uptake percent) of 51.6 % by the right kidney and 48.4 % by the left. 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 #UTI ruled out: urine culture contaminated #Sickle cell trait #Moderate anemia, microcytic hypochromic: sickle cell trait #Possible Euthyroid sick syndrome #Mild hyponatremia Discharge Disposition: Home Discharge Instruct/Medications Diet: Consistent carbohydrate Activity: No Restrictions, As Tolerated Follow Up/Referral: f/u with urology due to functional hydronephrosis, pcp for refferal to endocronolgist to managment of DM type 1 Medications: see prescription Discharge Statement: "Patient was advised to return to the ER or call 911 if any headaches, dizziness, shortness of breath, chest pain, abdominal pain, bleeding, fevers, or worsening of medical condition. Patient was counseled about treatment plan, medications, possible side effects, patientverbalized understanding. All questions were answered to the best of my ability. This discharge took greater then 30 minutes in planning, reviewing documentation, counseling the patient, and discussing with other team members." ASSESSMENT ASSESSMENT Assessment Same Date of Service: Oct 31, 2024 Billing Provider: JEANE SANTANA MD Common Visit Codes: 71177-GRC/OBS DISCH DAY >30min GARY DON RESIDENT Oct 31, 2024 13:13 JEANE SANTANA MD Oct 31, 2024 16:22
[2024-11-01] MEDS ORDERED: INSU-450 XX (09:16)
[2024-11-01] MEDS ORDERED: INSLISPI SC (09:16)
== END 2024-10-31 14:32 | disposition home or self-care (01) | DRG 465 ==
LOC: ER 19:09 → OVERFLOW 23:20 → EAST 10-26 16:24
PROVIDERS: ADMIT Student in an Organized Health Care Education/Training Program; ATTEND Student in an Organized Health Care Education/Training Program
PROC: 0T9B80Z Drainage of Bladder with Drainage Device, Via Natural or Artificial Opening Endoscopic (ICD-10-PCS; principal; 2024-10-26 13:54)
DX: N13.39 Other hydronephrosis (principal); N17.9 Acute kidney failure, unspecified; E43 Unspecified severe protein-calorie malnutrition; R64 Cachexia; E87.1 Hypo-osmolality and hyponatremia; D57.3 Sickle-cell trait; D50.9 Iron deficiency anemia, unspecified; E07.81 Sick-euthyroid syndrome; E10.65 Type 1 diabetes mellitus with hyperglycemia; K59.00 Constipation, unspecified; N32.89 Other specified disorders of bladder; E23.3 Hypothalamic dysfunction, not elsewhere classified; N91.1 Secondary amenorrhea; R33.9 Retention of urine, unspecified; E87.6 Hypokalemia; Z91.018 Allergy to other foods; Z83.3 Family history of diabetes mellitus; Z82.49 Family history of ischemic heart disease and other diseases of the circulatory system; Z84.81 Family history of carrier of genetic disease; Z83.2 Family history of diseases of the blood and blood-forming organs and certain disorders involving the immune mechanism; Z68.1 Body mass index [BMI] 19.9 or less, adult; Z79.4 Long term (current) use of insulin
CPT/HCPCS: 36415; 71045; 74176; 74177; 76775; 76856; 78707; 80048; 80053; 80307; 81001; 81025; 82306; 82607; 82670; 82728; 82962; 83001; 83002; 83036; 83540; 83550; 83605; 83690; 84146; 84439; 84443; 84484; 84702; 85025; 87086; 93005; G0378; J1100; J1815; J2250; J2405; J2704

== ENCOUNTER → 2024-12-05 | Day surgery (SDC) | payer MEDICAID ==
[2024-11-30 15:21] LABS: Basophils # (auto) 0.1 10 ^3/uL (0-0.2); Eosinophils # (auto) 0.2 10 ^3/uL (0-0.8); Hemoglobin 11.1 g/dL (12.2-16.2); Lymphocytes # (auto) 1.4 10 ^3/uL (0.4-5.4)
[2024-11-30 15:23] LABS: Basophils % (auto) 0.8 % (0.0-2.0); Eosinophils % (auto) 2.5 % (0.0-7.0); Hematocrit 33.7 % (36.0-46.0); Lymphocytes % (auto) 19.4 % (10.0-50.0); Mean Corpuscular Hemoglobin 24.2 pg (28.0-32.0); Mean Corpuscular Hgb Conc. 33.1 g/dL (32.0-36.0); Mean Corpuscular Volume 73.3 fL (80.0-100.0); Monocytes # (auto) 0.5 10 ^3/uL (0-1.3); Monocytes % (auto) 6.7 % (0.0-12.0); Neutrophils # (auto) 4.9 10 ^3/uL (1.6-8.6); Neutrophils % (auto) 70.6 % (37.0-80.0); Nucleated Red Blood Cells % 0.1 %; Platelet Count (auto) 301 10^3/uL (140-450); Red Cell Distribution Width 19.3 % (11.8-14.3)
[2024-11-30 15:28] LABS: Urine Bacteria MANY /hpf (None Seen); Urine Blood 2+ /uL (Negative); Urine Clarity Turbid (Clear); Urine Color Colorless (Yellow); Urine Protein, UAD 3+ (Negative); Urine Specific Gravity 1.011 (1.001-1.035); Urine Squamous Epithelial Cell FEW /hpf (<5); Urine Urobilinogen Normal (Negative); Urine WBC 172 /HPF (0-5); Urine WBC Clumps PRESENT /hpf (None Seen); Urine pH 6.5 (5.0-9.0)
[2024-11-30 15:34] LABS: INR 0.91 (0.9-1.15); Partial Thromboplastin Time 25.4 SEC (24.5-34.5); Prothrombin Time 9.7 sec (9.3-11.8)
[2024-11-30 15:35] LABS: Anion Gap 6 (5-15); Aspartate Aminotransferase 37 U/L (13-40); BUN/Creatinine Ratio 14.9 (10.0-20.0); Blood Urea Nitrogen 14 mg/dL (9-23); Calcium 9.7 mg/dL (8.7-10.4); Carbon Dioxide 24 mmol/L (20-31); Chloride 99 mmol/L (98-107)
[2024-11-30 15:36] LABS: Alanine Aminotransferase 50 U/L (7-40); Alkaline Phosphatase 189 U/L (46-116); Bilirubin, Total 0.3 mg/dL (0.2-1.0); Glucose 368 mg/dL (74-106); Sodium 129 mmol/L (136-145); Total Protein 7.8 g/dL (5.7-8.2)
[~2024-12-05] VITALS: Ht 157.5 cm; Wt 38.6 kg
[~2024-12-05] MED LIST changes: -CEPH500C PO; +CIPROFLOXACIN 400MG/200ML 200 ML IV ONE; +DexAMETHasone SOD PHOS 10MG/1ML VIAL INJ ONE; +INSU-450 XX; +IOHEXOL 300 MG/ML 100ML BOTTLE IJ ONE; +InsuLIN REG 1unit/0.01ml Soln (100units/ml) ONE; +MIDAZOLAM HCL 2MG/2ML 2ml VIAL (1mg/ml) ONE; +PROPOFOL 10 MG/ML 20 ML IV ONE; +fentaNYL CITRATE 100 MCG/2 ML VL ONE
[2024-12-05] MEDS: InsuLIN REG 1unit/0.01ml Soln (100units/ml) SC ONE (09:10)
[2024-12-05] MEDS: InsuLIN REG 1unit/0.01ml Soln (100units/ml) IV ONE (09:10)
[2024-12-05 10:55] VITALS: RESP 14; TEMP 97.2; O2SAT 100
--- NOTE | 2024-12-05 10:58 | DVHDS2 ---
New Physician D'charge PN Admitting Diagnosis Admitting Diagnosis Bilateral hydronephrosis Discharge Diagnosis Bilateral hydronephrosis with tortuous and looping ureter proximally Operations or Procedures Cystoscopy with bilateral retrograde pyelogram and bilateral ureteral stents placement Reason(s) For Hospitalization Surgery Treatment Plan Discharge Condition of Discharge Good Disposition Home Discharge Instructions Diet: Regular Activity: Light activity Activity comment: Johnson to gravity x1 week Medications: Given Follow Up Care Follow Up/Referral: Patient to resume self catheterization in one week Discharge Statement: "Patient was advised to return to the ER or call 911 if any headaches, dizziness, shortness of breath, chest pain, abdominal pain, bleeding, fevers, or worsening of medical condition. Patient was counseled about treatment plan, medications, possible side effects, patientverbalized understanding. All questions were answered to the best of my ability. This discharge took greater then 30 minutes in planning, reviewing documentation, counseling the patient, and discussing with other team members." ORLANDO TRAN MD Dec 05, 2024 10:58
--- NOTE | 2024-12-05 11:11 | DVH ---
FLUOROSCOPY TIME: 145 seconds TECHNIQUE: Intraoperative radiographs of the abdomen were obtained. COMPARISON: None FINDINGS: Refer to intraoperative report for further evaluation. IMPRESSION: Refer to intraoperative report for further evaluation.
[2024-12-05 11:25] VITALS: BP 128/90; PULSE 86; RESP 11; O2SAT 95
== END | disposition home or self-care (01) ==
LOC: SUR 08:06
PROVIDERS: ATTEND Urology
DX: N13.1 Hydronephrosis with ureteral stricture, not elsewhere classified (principal); N32.89 Other specified disorders of bladder; N31.9 Neuromuscular dysfunction of bladder, unspecified; E10.9 Type 1 diabetes mellitus without complications; Z79.4 Long term (current) use of insulin; Z98.890 Other specified postprocedural states; Z79.899 Other long term (current) drug therapy
CPT/HCPCS: 36415; 52332; 74018; 74420; 76000; 80053; 81001; 82962; 84702; 85025; 85610; 85730; 87086; 87088; 87186; C1758; C1769; C2617; J0744; J1100; J1815; J2250; J2704; J3010; Q9967

== ENCOUNTER 2025-02-09 13:25 | Emergency (ER) | payer MEDICAID ==
[~2025-02-09] VITALS: Ht 157.5 cm; Wt 37.5 kg
[~2025-02-09 13:25] MED LIST changes: -CIPROFLOXACIN 400MG/200ML 200 ML IV ONE; -DexAMETHasone SOD PHOS 10MG/1ML VIAL INJ ONE; -IOHEXOL 300 MG/ML 100ML BOTTLE IJ ONE; -InsuLIN REG 1unit/0.01ml Soln (100units/ml) ONE; -MIDAZOLAM HCL 2MG/2ML 2ml VIAL (1mg/ml) ONE; -PROPOFOL 10 MG/ML 20 ML IV ONE; -fentaNYL CITRATE 100 MCG/2 ML VL ONE
--- NOTE | 2025-02-09 14:38 | ED.PDOC ---
History of Present Illness HPI Comments 35 year old female presents to the ED with chief complaint of Diaz catheter problem. Patient reports that she had a Diaz catheter placed in November by Dr. 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 Patient relays that she had been showering on Wednesday when she accidentally snagged her Diaz catheter, being ripped out in the process. Patient states she called Dr. iMrza's office and was advised to come into the ED for a Diaz catheter replacement and follow up on February 15 for next Urologist appointment. Patient denies any abdominal pain, dysuria, hematuria, N/V/D, or fever. Chief Complaint: Tube Replacement Time Seen by MD: 14:34 Reviewed Notes: Nurses Notes, Medications, Allergies Allergies: Coded Allergies: Jose Flavor (Verified Allergy, Severe, 06/25/24) itching in the tongue with fresh mangoes per patient Home Meds Active Scripts Insulin Pen Needle (FIFTY50 PEN NEEDLES 31G X) 31GX3/16 Mis, 16 XX AC, #1 checj sugars with every meal Prov:GARY DON RESIDENT 11/01/24 Insulin Lispro (Human) (Humalog) 100 Unit/Ml Inj, 7 UNIT SC TIDWM, #1000 UNITS Prov:ROSETTA BROWN MD 06/27/24 Insulin Glargine (Lantus) 100 Unit/Ml Inj, 15 UNIT SC DAILY, #1000 INJ Prov:ROSETTA BROWN MD 06/26/24 Blood Glucose Monitoring Suppl (Freestyle Lite Blood Gluc) 1 Mis Mis, MIS XX, #1 Prov:ROSETTA BROWN MD 06/26/24 Reported Medications Acetaminophen (Acetaminophen) 325 Mg Tab, 500 MG PO DAILY PRN for PAIN SCALE 1 THRU 6 for 30 Days, MG 0 Refills 06/25/24 Information Source: Patient Mode of Arrival: Ambulatory Severity: Moderate Timing: Hours Duration: Since onset Prehospital treatment: None Past Medical History PAST MEDICAL HISTORY: DM Surgical History (Other): Bilateral kidney stents BENCH TECHNICIAN History: Denies all BENCH TECHNICIAN Hx Family History Family History: Unknown Social History Smoker: Non-Smoker Alcohol: Denies ETOH Use Drugs: Denies Drug Use Lives In: Home Constitutional: denies: chills, diaphoresis, fatigue, fever, malaise, sweats, weakness, others EENTM: denies: blurred vision, double vision, ear bleeding, ear discharge, ear drainage, ear pain, ear ringing, eye pain, eye redness, hearing loss, mouth pain, mouth swelling, nasal discharge, nose bleeding, nose congestion, nose pain, photophobia, tearing, throat pain, throat swelling, voice changes, others Respiratory: denies: cough, hemoptysis, orthopnea, SOB at rest, shortness of breath, SOB with excertion, stridor, wheezing, others Cardiovascular: denies: chest pain, dizzy spells, diaphoresis, Dyspnea on exertion, edema, irregular heart beat, left arm pain, lightheadedness, palpitations, PND, syncope, others Gastrointestinal: denies: abdomen distended, abdominal pain, blood streaked bowels, constipated, diarrhea, dysphagia, difficulty swallowing, hematemesis, melena, nausea, poor appetite, poor fluid intake, rectal bleeding, rectal pain, vomiting, others Genitourinary: denies: abnormal vagina bleeding, burning, dyspareunia, dysuria, flank pain, frequency, hematuria, incontinence, pain, , vagina discharge, urgency, others Neurological: denies: dizziness, fainting, headache, left sided numbness, left sided weakness, numbness, paresthesia, pre-existing deficit, right sided numbness, right sided weakness, seizure, speech problems, tingling, tremors, weakness, others Musculoskeletal: denies: back pain, gout, joint pain, joint swelling, muscle pain, muscle stiffness, neck pain, others Integumetry: denies: bruises, change in color, change in hair/nails, dryness, laceration, lesions, lumps, rash, wounds, others Allergic/Immunocompromised: denies: Difficulty Healing, Frequent Infections, Hives, Itching, others Hematologic/Lymphatic: denies: anemia, blood clots, easy bleeding, easy bruising, swollen glands, others Endocrine: denies: excessive hunger, excessive sweating, excessive thirst, excessive urination, flushing, intolerance to cold, intolerance to heat, unexplained weight gain, unexplained weight loss, others Psychiatric: denies: anxiety, bipolar disorder, depression, hopeless, panic disorder, schizophrenia, sleepless, suicidal, others All Other Systems: Reviewed and Negative Physical Exam General Appearance: No Apparent Distress, Normal HEENT: Normal ENT Inspection, PERRL/EOMI Neck: Full Range of Motion, Non-Tender, Normal, Normal Inspection Respiratory: Chest Non-Tender, Lungs Clear, No Accessory Muscle Use, No Respiratory Distress, Normal Breath Sounds Cardiovascular: No Edema, No JVD, No Murmur, No Gallop, Normal Peripheral Pulses, Regular Rate/Rhythm Breast Exam: Deferred Gastrointestinal: No Organomegaly, Non Tender, No Pulsatile Mass, Normal Bowel Sounds, Soft Genitalia: Deferred Pelvic: Deferred Rectal: Deferred Extremities: No calf tenderness, Normal capillary refill, Normal inspection, Normal range of motion, Non-tender, No pedal edema Musculoskeletal : Apperance: Normal Neurologic: Alert, extractor 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 Was a procedure done?: No Differential Dx Considerations may include: Diaz replacement, Diaz malfunction X-Ray, Labs, Meds, VS Vital Signs Date Time Temp Pulse Resp B/P (MAP) Pulse Ox O2 Delivery O2 Flow Rate FiO2 02/09/25 13:50 98.1 116 19 98/66 (77) 100 98.1 35-year-old female presents after falling was accidentally pulled out while she was showering. She states she has a mass that is blocking the flow of urine was causing hydronephrosis or she is chronically on diaz for the last few months. She was followed up by Urology Dr. Mirza. At this time a 16 [place] Diaz has been placed in the proximally 550 cc of urine has been removed. Patient has a follow up appointment with Dr. Mirza in 1 week. Advised patient to return if her sympto ms worsen or persist. Time of 1ST Reevaluation: 15:34 Reevaluation 1ST: Resolved Patient Education/Counseling: Diagnosis, Treatment Family Education/Counseling: No Family Present Departure 1 Departure Time of Disposition: 15:30 Impression: Primary Impression: Status post insertion of Diaz catheter Disposition: HOME / SELF CARE / HOMELESS Condition: Stable Additional Instructions: Follow up with the primary care physician in 2-3 days. Return ER if symptoms worsen or persist. Discharged With: Self Critical Care Note Critical Care Time?: No Stability Stability form required: No Heart Score Heart Score: Heart Score Response (Comments) Value History N/A 0 EKG N/A 0 Age N/A 0 Risk Factors N/A 0 Troponin N/A 0 Total 0 I personally scribed for TYREE ALLEN MD ([email or web address]) on 02/09/25 at 14:38. Electronically submitted by Chino Kelly ([email or web address]). I personally scribed for TYREE ALLEN MD ([email or web address]) on 02/09/25 at 14:52. Electronically submitted by Chino Kelly ([email or web address]). TYREE ALLEN MD Feb 09, 2025 14:38
[2025-02-09 17:02] VITALS: BP 98/68; PULSE 103; RESP 16; TEMP 98.1; O2SAT 99
[2025-02-09 17:25] LABS: Urine Bacteria MANY /hpf (None Seen); Urine Blood 3+ /uL (Negative); Urine Clarity Ex.Turbid (Clear); Urine Color Light-Brown (Yellow); Urine Mucus FEW (None Seen); Urine Protein, UAD 3+ (Negative); Urine Specific Gravity 1.011 (1.001-1.035); Urine Squamous Epithelial Cell None Seen /hpf (<5); Urine Urobilinogen Normal (Negative); Urine WBC 1414 /HPF (0-5); Urine WBC Clumps PRESENT /hpf (None Seen)
== END 2025-02-09 17:25 | disposition home or self-care (01) ==
LOC: ER 13:25
DX: T83.098A Other mechanical complication of other urinary catheter, initial encounter (principal); E11.9 Type 2 diabetes mellitus without complications; Z79.899 Other long term (current) drug therapy; Z98.890 Other specified postprocedural states; Y92.89 Other specified places as the place of occurrence of the external cause
CPT/HCPCS: 51702; 81001

== ENCOUNTER → 2025-05-28 | Outpatient (CLI) | payer MEDICAID ==
[~2025-05-28] VITALS: Ht 157.5 cm; Wt 40.4 kg
[2025-05-28 12:20] LABS: Hematocrit 30.0 % (36.0-46.0); Hemoglobin 9.9 g/dL (12.2-16.2); Mean Corpuscular Hemoglobin 23.9 pg (28.0-32.0); Mean Corpuscular Volume 72.2 fL (80.0-100.0); Nucleated Red Blood Cells % 0.0 %
[2025-05-28 12:22] LABS: INR 0.92 (0.9-1.15); Partial Thromboplastin Time 26.2 SEC (24.5-34.5); Prothrombin Time 9.8 sec (9.3-11.8)
[2025-05-28 12:42] LABS: Alanine Aminotransferase 11 U/L (7-40); Albumin 3.8 g/dL (3.2-4.8); BUN/Creatinine Ratio 11.3 (10.0-20.0); Blood Urea Nitrogen 16 mg/dL (9-23); Calcium 9.0 mg/dL (8.7-10.4); Chloride 102 mmol/L (98-107); Potassium 4.5 mmol/L (3.5-5.1); Total Protein 7.7 g/dL (5.7-8.2)
[2025-05-28 12:48] LABS: Alkaline Phosphatase 143 U/L (46-116); Bilirubin, Total 0.3 mg/dL (0.2-1.0); Glucose 266 mg/dL (74-106); Sodium 134 mmol/L (136-145)
[2025-05-28 13:02] LABS: Anion Gap 10 (5-15); Carbon Dioxide 22 mmol/L (20-31)
[2025-05-28 13:09] LABS: Urine Protein, UAD 3+ (Negative); Urine WBC Clumps PRESENT /hpf (None Seen)
== END | disposition home or self-care (01) ==
LOC: LAB 11:47 → EDSTATUS 05-29 11:45
PROVIDERS: ATTEND Urology
DX: Z01.812 Encounter for preprocedural laboratory examination (principal); N31.9 Neuromuscular dysfunction of bladder, unspecified
CPT/HCPCS: 36415; 80053; 81001; 84702; 85025; 85610; 85730; 87086; 87088; 87186

== ENCOUNTER → 2025-06-19 | Day surgery (SDC) | payer MEDICAID ==
[2025-06-15 11:50] LABS: Hematocrit 29.6 % (36.0-46.0); Mean Corpuscular Hemoglobin 23.2 pg (28.0-32.0); Nucleated Red Blood Cells % 0.1 %
[2025-06-15 11:51] LABS: Urine Protein, UAD 2+ (Negative); Urine WBC Clumps PRESENT /hpf (None Seen)
[2025-06-15 11:53] LABS: Hemoglobin 9.8 g/dL (12.2-16.2); Mean Corpuscular Volume 70.0 fL (80.0-100.0)
[2025-06-15 12:03] LABS: Alanine Aminotransferase 11 U/L (7-40); Albumin 3.7 g/dL (3.2-4.8); Anion Gap 8 (5-15); BUN/Creatinine Ratio 12.4 (10.0-20.0); Blood Urea Nitrogen 16 mg/dL (9-23); Calcium 8.9 mg/dL (8.7-10.4); Carbon Dioxide 23 mmol/L (20-31); Chloride 105 mmol/L (98-107); INR 0.95 (0.9-1.15); Partial Thromboplastin Time 26.0 SEC (24.5-34.5); Potassium 4.5 mmol/L (3.5-5.1); Prothrombin Time 10.1 sec (9.3-11.8); Total Protein 8.0 g/dL (5.7-8.2)
[2025-06-15 12:08] LABS: Alkaline Phosphatase 130 U/L (46-116); Bilirubin, Total 0.2 mg/dL (0.2-1.0); Glucose 130 mg/dL (74-106); Sodium 136 mmol/L (136-145)
[~2025-06-19] VITALS: Ht 157.5 cm; Wt 40.4 kg
[~2025-06-19] MED LIST changes: -ACET-1881 PO; +ACET1CAP14 PO; +HYDROmorphone HCL 2 MG/ML VL/or syr IV PRN; +IOHEXOL 300 MG/ML 100ML BOTTLE IJ ONE; +MIDAZOLAM HCL 2MG/2ML 2ml VIAL (1mg/ml) IV PRN; +MIDAZOLAM HCL 2MG/2ML 2ml VIAL (1mg/ml) ONE; +MORPHINE SULFATE 4 MG/ML SYR/VIAL IV PRN; +fentaNYL CITRATE 100 MCG/2 ML VL ONE; +hydrALAZINE HCL 20 MG/ML VL IV PRN
[2025-06-19] MEDS: CIPROFLOXACIN 400MG/200ML 200 ML IV ONE (09:47)
[2025-06-19 10:25] VITALS: PULSE 87; RESP 18; O2SAT 100
--- NOTE | 2025-06-19 10:35 | DVHNC2 ---
Procedure - OPERATIVE REPORT Pre-op. Diagnosis: Bilateral hydronephrosis Urinary retention Ureteral Obstruction - Bilateral Post-op. Diagnosis: Same as pre-op diagnosis Operation: Cystoscopy with bilateral ureteral stents exchange Johnson catheter placement fluoroscopy Anesthesia: General Indications: The indications, risks, complications, alternatives and benefits of cystoscopy with ureteral stent exchange and possible retrograde pyelogram were discussed with patient. All questions were encouraged and answered. Patient was aware of risks/complications including but not limited to infection, bleeding, persistent pain, possible ureteral injury requiring additional surgical management, ureteral stricture formation and risk of anesthesia. Given these risks, patient agreed to proceed with surgery and signed the consent form. Details of Procedure: After obtaining the consent, patient was taken to OR suite and underwent general anesthesia. With the patient positioned in the lithotomy, the area of the genitalia was prepped and draped in usual sterile fashion. Next, a 22 F Cystoscope was used to access the urethra and bladder. No tumors or stones were seen in the bladder. The bladder was distended and debris material were noted. The right ureteral stent was identified and using the grasper it was taken out to the meatus and a sensor tip guidewire was advanced into the right ureter through the old stent and advanced into the right kidney under fluoroscopy. A [address] ureteral stent was placed into the right kidney over the sensor wire with proper positioning confirmed under fluoroscopy and direct visualization. Next, the left ureteral stent was identified and using the grasper it was taken out in one piece without any resistance to the meatus. Next a sensor tip guidewire was placed into the left ureter through the old stent and advanced into the left kidney under fluoroscopy. A [address] ureteral stent was placed into the left kidney over the sensor wire and proper positioning confirmed under fluoroscopy and direction visualization. The bladder was emptied and the cystoscope was taken out. Johnson catehter was placed. Patient was put back in supine position. Patient was awoken and moved to in stable condition. Specimens: Old bilateral ureteral stents Complications: None Findings: Notes: monthly Johnson catheter exchanges to be arranged next bilateral ureteral stent exchange in six months ORLANDO TRAN MD Jun 19, 2025 10:35
--- NOTE | 2025-06-19 10:37 | DVHDS2 ---
New Physician D'charge PN Admitting Diagnosis Admitting Diagnosis Bilateral ureteral stents Bilateral hydronephrosis Urinary retention Discharge Diagnosis Same Operations or Procedures Cystoscopy with bilateral ureteral stents exchange Reason(s) For Hospitalization Surgery Treatment Plan Discharge Condition of Discharge Good Disposition Home Discharge Instructions Diet: Regular Activity: Light activity Activity comment: Johnson catheter management Medications: Given Follow Up Care Follow Up/Referral: Monthly Johnson catheter exchange Cystoscopy with bilateral ureteral stent exchange in six months Discharge Statement: "Patient was advised to return to the ER or call 911 if any headaches, dizziness, shortness of breath, chest pain, abdominal pain, bleeding, fevers, or worsening of medical condition. Patient was counseled about treatment plan, medications, possible side effects, patientverbalized understanding. All questions were answered to the best of my ability. This discharge took greater then 30 minutes in planning, reviewing documentat ion, counseling the patient, and discussing with other team members." ORLANDO TRAN MD Jun 19, 2025 10:37
[2025-06-19 10:40] VITALS: BP 127/90; PULSE 78; RESP 15; O2SAT 100
--- NOTE | 2025-06-19 11:25 | DVH ---
FLUOROSCOPY TIME: 10 seconds TECHNIQUE: Intraoperative radiographs of the pelvis were obtained. COMPARISON: XY KUB ABDOMEN SINGLE VIEW on DOS: 12/05/24, NM NM MAG3 RENAL SCAN on DOS: 10/30/24, US KID NINI on DOS: 10/29/24, CT CT AB PEL WITH IV CON ONLY on DOS: 10/26/24, US KIDNEY on DOS: 10/26/24 FINDINGS: Refer to intraoperative report for further evaluation. IMPRESSION: Refer to intraoperative report for further evaluation.
--- NOTE | 2025-06-19 11:25 | DVH ---
FLUOROSCOPY TIME: 10 seconds TECHNIQUE: Intraoperative radiographs of the pelvis were obtained. COMPARISON: XY KUB ABDOMEN SINGLE VIEW on DOS: 06/19/25, XY C ARM FLUOROSCOPY UP TO 60MIN on DOS: , XY KUB ABDOMEN SINGLE VIEW on DOS: 12/05/24, US KIDNEY on DOS: 10/29/24, CT CT AB PEL WITH IV CON O NLY on DOS: 10/26/24 FINDINGS: Refer to intraoperative report for further evaluation. IMPRESSION: Refer to intraoperative report for further evaluation.
== END | disposition home or self-care (01) ==
LOC: SUR 06:56
PROVIDERS: ATTEND Urology
DX: N13.30 Unspecified hydronephrosis (principal); R33.9 Retention of urine, unspecified; E10.9 Type 1 diabetes mellitus without complications; Z79.899 Other long term (current) drug therapy; Z98.891 History of uterine scar from previous surgery; Z98.890 Other specified postprocedural states
CPT/HCPCS: 36415; 52332; 74018; 80053; 81001; 81025; 82962; 85025; 85610; 85730; 87086; A4315; A4344; C1769; C2617; J0744; J1100; J2250; J3010; J7030; Q9967; 76000

== ENCOUNTER 2025-07-31 18:12 | Emergency (ER) | payer MEDICAID ==
[~2025-07-31] VITALS: Ht 157.5 cm; Wt 40.7 kg
[~2025-07-31 18:12] MED LIST changes: -HYDROmorphone HCL 2 MG/ML VL/or syr IV PRN; -IOHEXOL 300 MG/ML 100ML BOTTLE IJ ONE; -MIDAZOLAM HCL 2MG/2ML 2ml VIAL (1mg/ml) IV PRN; -MIDAZOLAM HCL 2MG/2ML 2ml VIAL (1mg/ml) ONE; -MORPHINE SULFATE 4 MG/ML SYR/VIAL IV PRN; -fentaNYL CITRATE 100 MCG/2 ML VL ONE; -hydrALAZINE HCL 20 MG/ML VL IV PRN
[2025-07-31 18:13] VITALS: BP 132/83; RESP 18; TEMP 98.1; O2SAT 100
[2025-07-31 18:30] VITALS: PULSE 98
--- NOTE | 2025-07-31 18:38 | ECG ---
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
--- NOTE | 2025-07-31 19:21 | ED.PDOC ---
HPI (NEURO) HPI Comments 35-year-old female with a history of type 1 diabetes now complains of some lightheadedness and fatigue and malaise for the last 3 days. Patient states that she has a bad habit of sniffing rubbing alcohol and thinks that this may be a cause but isnt sure. Chief Complaint: General Weakness Time Seen by MD: 18:30 Information Source: Patient Mode of Arrival: Ambulatory Severity: Moderate Timing: Days Duration: Since onset Past Medical History PAST MEDICAL HISTORY: DM REAL ESTATE PARALEGAL History: Denies all REAL ESTATE PARALEGAL Hx Family History Family History: Unknown Social History Smoker: Non-Smoker Alcohol: Denies ETOH Use Drugs: Denies Drug Use Lives In: Home Constitutional: reports: fatigue, weakness All Other Systems: Reviewed and Negative Physical Exam General Appearance: Mild Distress HEENT: Normal ENT Inspection, Pharynx Normal, TMs Normal Neck: Full Range of Motion, Non-Tender, Normal, Normal Inspection Respiratory: Chest Non-Tender, Lungs Clear, No Accessory Muscle Use, No Respi ratory Distress, Normal Breath Sounds Cardiovascular: No Edema, No JVD, No Murmur, No Gallop, Normal Peripheral Pulses, Regular Rate/Rhythm Breast Exam: Deferred Gastrointestinal: No Organomegaly, Non Tender, No Pulsatile Mass, Normal Bowel Sounds, Soft Genitalia: Deferred Pelvic: Deferred Rectal: Deferred Extremities: No calf tenderness, Normal capillary refill, Normal inspection, Normal range of motion, Non-tender, No pedal edema Musculoskeletal : Apperance: Normal Neurologic: Alert, plumbing hardware assembler II-XII nml as Tested, No Motor Deficits, Normal Affect, Normal Mood, No Sensory Deficits Cerebellar Function: Normal Reflexes: Normal Skin: Dry, Normal Color, Warm Lymphatic: No Adenopathy EKG EKG : Comments Test Date: 2025-07-31 Test Time: 18:30:56 Pat Name: SILVIA CORNEJO Department: ED Room: 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 Was a procedure done?: No Differential Diagnosis (SZ) Seizure: Psychogenic Seizure, Alcohol Withdrawl, Closed Head Injury, CVA/TIA, Drug Ingestion, Hypocalcemia, Hypoglycemia, Hypoxemia, Mass Lesion, Meningitis, Syncope, Other X-Ray, Labs, Meds, VS Vital Signs Date Time Temp Pulse Resp B/P (MAP) Pulse Ox O2 Delivery O2 Flow Rate FiO2 07/31/25 20:25 Room Air* 0 21 07/31/25 18:30 98 07/31/25 18:13 98.1 106 18 132/83 100 98.1 Lab Test 07/31/25 19:24 Range/Units White Blood Count 4.8 4.4-10.8 10^3/uL Red Blood Count 4.04 4.0-5.20 10^6/uL Hemoglobin 9.0 L 12.2-16.2 g/dL Hematocrit 28.1 L 36.0-46.0 % Mean Corpuscular Volume 69.5 L 80.0-100.0 fL Mean Corpuscular Hemoglobin 22.2 L 28.0-32.0 pg Mean Corpuscular Hemoglobin Concent 32.0 32.0-36.0 g/dL Red Cell Distribution Width 18.9 H 11.8-14.3 % Platelet Count 328 140-450 10^3/uL Mean Platelet Volume 7.8 6.9-10.8 fL Neutrophils (%) (Auto) 51.5 37.0-80.0 % Lymphocytes (%) (Auto) 37.7 10.0-50.0 % Monocytes (%) (Auto) 5.8 0.0-12.0 % Eosinophils (%) (Auto) 3.9 0.0-7.0 % Basophils (%) (Auto) 1.1 0.0-2.0 % Neutrophils # (Auto) 2.5 1.6-8.6 10 ^3/uL Lymphocytes # (Auto) 1.8 0.4-5.4 10 ^3/uL Monocytes # (Auto) 0.3 0-1.3 10 ^3/uL Eosinophils # (Auto) 0.2 0-0.8 10 ^3/uL Basophils # (Auto) 0.1 0-0.2 10 ^3/uL Nucleated Red Blood Cells 0.1 % Sodium Level 140 136-145 mmol/L Potassium Level 3.7 3.5-5.1 mmol/L Chloride Level 106 98-107 mmol/L Carbon Dioxide Level 25 20-31 mmol/L Anion Gap 9 5-15 Blood Urea Nitrogen 19 9-23 mg/dL Creatinine 1.63 H 0.550-1.02 mg/dL Glomerular Filtration Rate Calc 42 >90 mL/min BUN/Creatinine Ratio 11.7 10.0-20.0 Serum Glucose 78 74-106 mg/dL Calcium Level 8.5 L 8.7-10.4 mg/dL Total Bilirubin 0.2 0.2-1.0 mg/dL Aspartate Amino Transferase (AST) 24 13-40 U/L Alanine Aminotransferase (ALT) 15 7-40 U/L Alkaline Phosphatase 127 H 46-116 U/L Total Protein 7.9 5.7-8.2 g/dL Albumin 3.7 3.2-4.8 g/dL Salicylates Level < 3.0 -30 mg/dL Acetaminophen Level < 2.0 L 10.0-20.0 UG/ML Plasma/Serum Blood Alcohol < 3.0 <10 mg/dL Time of 1ST Reevaluation: 19:20 Reevaluation 1ST: Unchanged Patient Education/Counseling: Diagnosis, Treatment Family Education/Counseling: No Family Present Departure 1 Departure Time of Disposition: 21:00 Impression: Primary Impression: Fatigue Additional Impressions: Controlled type 1 diabetes mellitus Iron deficiency anemia Renal insufficiency Disposition: HOME / SELF CARE / HOMELESS Condition: Stable e-Prescriptions Ferrous Sulfate (FERROUS SULFATE) 325 Mg Tb 1 TAB PO DAILY for 90 Days, #90 TAB 3 Refills Prov: KUSHAL BERGERON MD 07/31/25 Discharged With: Self Critical Care Note Critical Care Time?: No Stability Stability form required: No Heart Score Heart Score: Heart Score Response (Comments) Value History N/A 0 EKG N/A 0 Age N/A 0 Risk Factors N/A 0 Troponin N/A 0 Total 0 KUSHAL BERGERON MD Jul 31, 2025 19:21
[2025-07-31 19:47] LABS: Hematocrit 28.1 % (36.0-46.0); Hemoglobin 9.0 g/dL (12.2-16.2); Mean Corpuscular Hemoglobin 22.2 pg (28.0-32.0); Mean Corpuscular Volume 69.5 fL (80.0-100.0); Nucleated Red Blood Cells % 0.1 %
[2025-07-31 20:07] LABS: Alanine Aminotransferase 15 U/L (7-40); Anion Gap 9 (5-15); BUN/Creatinine Ratio 11.7 (10.0-20.0); Blood Urea Nitrogen 19 mg/dL (9-23); Carbon Dioxide 25 mmol/L (20-31); Chloride 106 mmol/L (98-107); Glucose 78 mg/dL (74-106); Potassium 3.7 mmol/L (3.5-5.1); Sodium 140 mmol/L (136-145); Total Protein 7.9 g/dL (5.7-8.2)
[2025-07-31 20:08] LABS: Albumin 3.7 g/dL (3.2-4.8)
[2025-07-31 20:10] LABS: Alkaline Phosphatase 127 U/L (46-116); Bilirubin, Total 0.2 mg/dL (0.2-1.0); Calcium 8.5 mg/dL (8.7-10.4)
[2025-07-31 21:18] LABS: Acetaminophen < 2.0 UG/ML (10.0-20.0); Salicylate < 3.0 mg/dL (-30)
[2025-07-31] MEDS ORDERED: FER325T PO (21:25)
== END 2025-07-31 21:36 | disposition home or self-care (01) ==
LOC: ER 18:12
DX: R53.83 Other fatigue (principal); E10.649 Type 1 diabetes mellitus with hypoglycemia without coma; D50.9 Iron deficiency anemia, unspecified; N28.9 Disorder of kidney and ureter, unspecified
CPT/HCPCS: 36415; 80053; 80320; 80329; 85025; 93005